=== PATIENT | female | born 1965 | race Caucasian/White ===

== ENCOUNTER 2019-12-05 19:26 | Emergency (ER) | payer MEDICARE ==
--- NOTE | 2019-12-05 20:50 | ERPHSYRPT ---
- History of Present Illness Time Seen by Provider: 12/05/19 19:45 Source: patient Exam Limitations: no limitations Patient Subjective Stated Complaint: pt to ER with complaints of lower back pain. pt states she always has back pain but lowered herself down to the ground today because she stated her back gave out. Triage Nursing Assessment: pt A&Ox4. pt ambulatory and anxious. pt skin pwd. Physician History: Patient is a 54-year-old female who presents with a complaint of back pain. She says she is in the midst of a work-up for rheumatoid arthritis by 2 different doctors. She was at a recently and bent over to burr picker some lucas and felt pain in her lower back. She has pain down both legs she has no bowel or bladder problems. Patient is currently under treatment for cellulitis of the abdominal wall Timing/Duration: yesterday Method of Injury: bending Quality: radiating, throbbing Back Pain Location: lumbar spine Back Pain Radiation: upper legs, lower legs Severity of Pain-Max: moderate Severity of Pain-Current: moderate Modifying Factors: Improves With: nothing Associated Symptoms: urinary incontinence, loss of bowel control, tingling in legs/feet, lower back pain Previous symptoms: same symptoms as today Allergies/Adverse Reactions: No Known Drug Allergies Allergy (Verified 12/05/19 19:47) Home Medications: Levothyroxine Sodium 100 Mcg [Synthroid 100 Mcg] 200 mg PO DAILY 11/25/12 [History] Metoprolol Tartrate 50 mg [Lopressor 50 MG] 50 mg PO DAILY 11/25/12 [Hist ory] Quetiapine Fumarate 100 mg [Seroquel 100 MG] 300 mg PO HS 11/25/12 [History] Simvastatin 20Mg [Zocor 20Mg] 20 mg PO DAILY 11/25/12 [History] Trazodone HCl 150 mg [Desyrel 150 MG] 100 mg PO HS 11/25/12 [History] Omeprazole 20 MG [Prilosec 20 mg] 20 mg PO DAILY 06/24/15 [History] Alprazolam 1 mg [Xanax 1 mg] 1 mg PO TID 07/02/18 [History] Sennosides/Docusate Sodium [Dok Plus Tablet] 1 each PO DAILY 07/02/18 [History] Benztropine Mesylate 1 mg PO DAILY 12/05/19 [History] Hx Tetanus, Diphtheria Vaccination/Date Given: Yes Hx Influenza Vaccination/Date Given: No Hx Pneumococcal Vaccination/Date Given: No Travel Risk - International Travel Have you traveled outside of the country in past 3 weeks: No - Coronavirus Screening Close contact with a COVID-19 positive Pt in past 14-21 Days: No - Review of Systems Constitutional: No Fever, No Chills Eyes: No Symptoms Ears, Nose, & Throat: No Symptoms Respiratory: No Cough, No Dyspnea Cardiac: No Chest Pain, No Edema, No Syncope Abdominal/Gastrointestinal: No Abdominal Pain, No Nausea, No Vomiting, No Diarrhea Genitourinary Symptoms: No Dysuria Musculoskeletal: Back Pain, No Neck Pain Skin: No Rash Neurological: No Dizziness, No Focal Weakness, No Sensory Changes Psychological: No Symptoms Endocrine: No Symptoms All Other Systems: Reviewed and Negative - Past Medical History Pertinent Past Medical History: Yes Neurological History: No Pertinent History ENT History: No Pertinent History Cardiac History: High Cholesterol, Hypertension Respiratory History: No Pertinent History Endocrine Medical History: Hypothyroidism Musculoskeletal History: Arthritis GI Medical History: GERD, Hepatitis History: Renal Disease Psycho-Social History: Bipolar, Depression Female Reproductive Disorders: No Pertinent History Other Medical History: CHRONIC ALCOHOLIC. SUBSTANCE ABUSE USER-METH. pt has hep c - Past Surgical History Past Surgical History: Yes Neuro Surgical History: No Pertinent History Cardiac: No Pertinent History Respiratory: No Pertinent History Gastrointestinal: No Pertinent History Genitourinary: Kidney Surgery Musculoskeletal: Orthopedic Surgery Female Surgical History: Hysterectomy, Tubal Ligation Other Surgical History: reimplantation of ureter - Social History Smoking Status: Current every day smoker How long have you smoked: 30 Exposure to second hand smoke: Yes Drug Use: methamphetamines Patient Lives Alone: Yes Significant Family History: no pertinent family hx - Female History Hx Now: No - Nursing Vital Signs Nursing Vital Signs: Initial Vital Signs Temperature 97.5 F 12/05/19 19:37 Pulse Rate 127 H 12/05/19 19:37 Respiratory Rate 18 12/05/19 19:37 Blood Pressure 154/100 12/05/19 19:37 O2 Sat by Pulse Oximetry 94 L 12/05/19 19:37 Pain Scale Pain Intensity 9 - Physical Exam General Appearance: no apparent distress, alert Eye Exam: PERRL/EOMI, eyes nml inspection Neck Exam: normal inspection, non-tender, supple, full range of motion, No meningismus, No midline tenderness Respiratory Exam: normal breath sounds, lungs clear, No respiratory distress Cardiovascular Exam: regular rate/rhythm, normal heart sounds Gastrointestinal Exam: soft, No tenderness, No mass Extremity Exam: normal inspection, normal range of motion, No calf tenderness, No pedal edema Neurologic Exam: alert, oriented x 3, cooperative, 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, normal mood/affect, nml station & gait, sensation nml, abnormal gait, other (Straight leg raising negative), No motor deficits Skin Exam: warm, dry, other (Of cellulitis right upper abdomen), No rash SpO2 Interpretation: normal SpO2: 94 O2 Delivery: Room Air - Course Nursing assessment & vital signs reviewed: Yes - Radiology Exams L-Spine X-ray Interpretation: Interpreted by me, Other (Mild degenerative changes and vascular calcifications) Ordered Tests: Active Orders 24 hr Category Date Time Status LUMBAR COMPLETE (MIN 4 VIEWS) Stat Exams 12/05/19 20:15 Taken - Departure Departure Disposition: Home Clinical Impression: Lumbar strain, Cellulitis Condition: Stable Critical Care Time: No Referrals: EMELY OROSCO MD [Primary Care Provider] - Instructions: Low Back Pain (DC) Prescriptions: Diclofenac Sodium 50 mg [Voltaren 50 mg] 50 mg PO TID 10 Days #30 tablet.ec
[2019-12-05 21:02] VITALS: BP 142/107; PULSE 104; O2SAT 96
--- NOTE | 2019-12-05 21:52 | XRAY ---
Indication: Lumbar pain after bending over. Comparison: July 05, 2006. 5 view lumbar spine again demonstrates normal alignment with vertebral body heights/disc spaces maintained. New mild bilateral L5-S1 degenerative facet hypertrophy. No acute fracture, subluxation, or pars interarticularis defect. Increasing moderate aortic calcifications. Impression: Nonacute lumbar spine with chronic features.
== END 2019-12-05 21:03 | disposition home or self-care (01) ==
LOC: ED 19:26
DX: S39.012A Strain of muscle, fascia and tendon of lower back, initial encounter (principal); X50.0XXA Overexertion from strenuous movement or load, initial encounter; X50.9XXA Other and unspecified overexertion or strenuous movements or postures, initial encounter; Y93.89 Activity, other specified; Y92.89 Other specified places as the place of occurrence of the external cause; L03.311 Cellulitis of abdominal wall; R20.0 Anesthesia of skin
CPT/HCPCS: 72110; 87070; 87077; 87186; 99283

== ENCOUNTER 2020-11-29 18:58 | Emergency (ER) | payer MEDICARE ==
[2020-11-29 19:07] VITALS: BP 131/106
[2020-11-29] MEDS ORDERED: Adacel Vial IM ONE (19:14)
[2020-11-29] MEDS ORDERED: XYLOCAINE 2% HCL 20 ML MDV ONE (19:14)
[2020-11-29] MEDS: XYLOCAINE 2% HCL 20 ML MDV IJ ONE (19:15)
[2020-11-29] MEDS: Adacel Vial IM ONE (19:16)
--- NOTE | 2020-11-29 19:25 | ERPHSYRPT ---
- History of Present Illness Time Seen by Provider: 11/29/20 19:10 Source: patient Exam Limitations: no limitations Patient Subjective Stated Complaint: LACERATION TO LEFT HAND Triage Nursing Assessment: 2CM LACERATION BETWEEN INDEX FINGER AND THUMB. NOT ACTIVELY BLEEDING. Physician History: Patient is a 54-year-old female presents to our ED for evaluation and treatment of a laceration to the webspace of her left upper extremity between the index finger and the thumb. Patient lacerated this area on a beach lanyard. Injury occurred just prior to arrival. No other injuries reported. Pain described as an ache that is localized. No radiation. No trauma. Patient denies foreign body sensation. Tetanus not up-to-date. Symptoms are mild to moderate in intensity. Pain somewhat worse with palpation and movement. Pain improved with rest. Patient voices no other complaints or concerns at this time. Timing/Duration: today Severity: mild Modifying Factors: Improves With: movement Associated Symptoms: denies symptoms Allergies/Adverse Reactions: No Known Drug Allergies Allergy (Verified 12/05/19 19:47) Home Medications: Levothyroxine Sodium 100 Mcg [Synthroid 100 Mcg] 200 mg PO DAILY 11/25/12 [History] Metoprolol Tartrate 50 mg [Lopressor 50 MG] 50 mg PO DAILY 11/25/12 [History] Quetiapine Fumarate 100 mg [Seroquel 100 MG] 300 mg PO HS 11/25/12 [History] Simvastatin 20Mg [Zocor 20Mg] 20 mg PO DAILY 11/25/12 [History] Trazodone HCl 150 mg [Desyrel 150 MG] 100 mg PO HS 11/25/12 [History] Omeprazole 20 MG [Prilosec 20 mg] 20 mg PO DAILY 06/24/15 [History] ALPRAZolam 1 MG [Xanax 1 mg] 1 mg PO TID 07/02/18 [History] Sennosides/Docusate Sodium [Dok Plus Tablet] 1 each PO DAILY 07/02/18 [History] Benztropine Mesylate 1 mg PO DAILY 12/05/19 [History] Hx Tetanus, Diphtheria Vaccination/Date Given: (UNKNOWN) Hx Influenza Vaccination/Date Given: No Hx Pneumococcal Vaccination/Date Given: No Travel Risk - International Travel Have you traveled outside of the country in past 3 weeks: No - Coronavirus Screening Are you exhibiting any of the following symptoms?: No Close contact with a COVID-19 positive Pt in past 14-21 Days: No - Vaccine Status Have you recieved a Covid-19 vaccination: Yes [employer]: [employer] - Review of Systems Constitutional: No Symptoms, No Fever, No Chills Eyes: No Symptoms Ears, Nose, & Throat: No Symptoms Respiratory: No Symptoms, No Cough, No Dyspnea Cardiac: No Symptoms, No Chest Pain, No Edema, No Syncope Abdominal/Gastrointestinal: No Symptoms, No Abdominal Pain, No Nausea, No Vomiting, No Diarrhea Genitourinary Symptoms: No Symptoms, No Dysuria Musculoskeletal: No Symptoms, No Back Pain, No Neck Pain Skin: No Symptoms, No Rash Neurological: No Symptoms, No Dizziness, No Focal Weakness, No Sensory Changes Psychological: No Symptoms Endocrine: No Symptoms Hematologic/Lymphatic: No Symptoms Immunological/Allergic: No Symptoms All Other Systems: Reviewed and Negative - Past Medical History Pertinent Past Medical History: Yes Neurological History: No Pertinent History ENT History: No Pertinent History Cardiac History: High Cholesterol, Hypertension Respiratory History: No Pertinent History Endocrine Medical History: Hypothyroidism Musculoskeletal History: Arthritis GI Medical History: GERD, Hepatitis History: Renal Disease Psycho-Social History: Bipolar, Depression Female Reproductive Disorders: No Pertinent History Other Medical History: CHRONIC ALCOHOLIC. SUBSTANCE ABUSE USER-METH. pt has hep c - Past Surgical History Past Surgical History: Yes Neuro Surgical History: No Pertinent History Cardiac: No Pertinent History Respiratory: No Pertinent History Gastrointestinal: No Pertinent History Genitourinary: Kidney Surgery Musculoskeletal: Orthopedic Surgery Female Surgical History: Hysterectomy, Tubal Ligation Other Surgical History: reimplantation of ureter - Social History Smoking Status: Current every day smoker How long have you smoked: 30 Exposure to second hand smoke: Yes Drug Use: methamphetamines Patient Lives Alone: Yes Significant Family History: no pertinent family hx - Nursing Vital Signs Nursing Vital Signs: Initial Vital Signs Temperature 97.6 F 11/29/20 18:59 Pulse Rate 112 H 11/29/20 18:59 Respiratory Rate 22 11/29/20 18:59 Blood Pressure 131/106 11/29/20 18:59 O2 Sat by Pulse Oximetry 100 11/29/20 18:59 Pain Scale Pain Intensity 4 - Physical Exam General Appearance: no apparent distress, alert Eye Exam: PERRL/EOMI, eyes nml inspection Ears, Nose, Throat Exam: normal ENT inspection, TMs normal, pharynx normal, moist mucous membranes Neck Exam: normal inspection, non-tender, supple, full range of motion Respiratory Exam: normal breath sounds, lungs clear, No respiratory distress Cardiovascular Exam: regular rate/rhythm, normal heart sounds, normal peripheral pulses Gastrointestinal/Abdomen Exam: soft, normal bowel sounds, No tenderness, No mass Back Exam: normal inspection, normal range of motion, No CVA tenderness, No vertebral tenderness Extremity Exam: normal inspection, normal range of motion, pelvis stable, other (Stellate shaped laceration of the webspace between the first and second digit left upper extremity. No active bleeding. Patient denies foreign body sensation. Extremity neurovascular intact distally. Compartments are soft. Cap refill less than 2 seconds.) Neurologic Exam: alert, oriented x 3, cooperative, normal mood/affect, nml cerebellar function, nml station & gait, sensation nml, No motor deficits Skin Exam: normal color, warm, dry, No rash Lymphatic Exam: No adenopathy SpO2 Interpretation: normal SpO2: 100 O2 Delivery: Room Air Procedures - Laceration/Wound Repair Left Hand Time of Procedure: 19:31 Wound Location: Left, hand Wound Length (cm): 0.5 Wound's Depth, Shape: superficial Wound Explored: clean Irrigated: Yes Hibiclens Prep: Yes Anesthesia: local, 2% Lidocaine Volume Anesthetic (ccs): 4 Wound Debrided: No debridement indicated. Wound Repaired With: sutures Suture Size/Type: 5-0, nylon Number of Sutures: 4 Layer Closure?: No Sterile Dressing Applied?: Yes Splint Applied?: No Sling Applied?: No Progress: Patient neurovascular intact distally post procedure. 11/29/20 19:32 Ordered Tests: Medication Summary Discontinued Medications Generic Name Dose Route Start Last Admin Trade Name Freq PRN Reason Stop Dose Admin Diphtheria/Tetanus/Acell Pertussis 0.5 ml 11/29/20 19:07 11/29/20 19:16 Adacel Vial IM 11/29/20 19:08 0.5 ml .ONCE ONE Administration Diphtheria/Tetanus/Acell Pertussis Confirm 11/29/20 19:14 Adacel Vial Administered 11/29/20 19:15 Dose 0.5 ml IM .STK-MED ONE Lidocaine HCl 5 ml 11/29/20 19:07 11/29/20 19:15 Xylocaine 2% Hcl 20 Ml Mdv IJ 11/29/20 19:08 5 ml STAT ONE Administration Lidocaine HCl Confirm 11/29/20 19:14 Xylocaine 2% Hcl 20 Ml Mdv Administered 11/29/20 19:15 Dose 5 ml .ROUTE .STK-MED ONE - Departure Departure Disposition: Home Clinical Impression: Laceration Condition: Stable Critical Care Time: No Referrals: EMELY OROSCO MD [Primary Care Provider] - Instructions: Wound Care (DC), Laceration Repair With Stitches (DC) Additional Instructions: Discharge/Care Plan ZACARIAS ADAMS was seen on 11/29/20 in the Emergency Room. The patient was counseled regarding Diagnosis,Lab results, Imaging studies, need for follow up and when to return to the Emergency Room. Prescriptions given: Discharge Note I have spoken with the patient and/or caregivers. I have explained the patient's condition, diagnosis and treatment plan based on the information available to me at this time. I have answered the patient's and/or caregiver's questions and addressed any concerns. The patient and/or caregivers have as good understanding of the patient's diagnosis, condition and treatment plan as can be expected at this point. The vital signs have been stable. The patient's condition is stable and appropriate for discharge from the emergency department. The patient will pursue further outpatient evaluation with the primary care physician or other designated or consulting physician as outlined in the discharge instructions. The patient and/or caregivers are agreeable to this plan of care and follow-up instructions have been explained in detail. The patient and/or caregivers have received these instruction. The patient/and or caregivers are aware that any significant change in condition or worsening of symptoms should prompt an immediate return to this or the closest emergency department or call 911.
[2020-11-29] MEDS ORDERED: BACIGUENT PACKET ONE (19:32)
[2020-11-29] MEDS: BACIGUENT PACKET TP ONE (19:33)
[2020-11-29 19:36] VITALS: PULSE 100; O2SAT 96
== END 2020-11-29 19:39 | disposition home or self-care (01) ==
LOC: ED 18:58
DX: S61.412A Laceration without foreign body of left hand, initial encounter (principal); W26.8XXA Contact with other sharp object(s), not elsewhere classified, initial encounter; Z79.899 Other long term (current) drug therapy
CPT/HCPCS: 12001; 90471; 90715; 96372; 99283; A9270-GY

== ENCOUNTER 2021-06-02 02:11 | Emergency (ER) | payer MEDICARE ==
[2021-06-02 02:58] LABS: Absolute Neutrophil Ct (ANC) 5.48 (1.4-6.9); Basophil (Absolute #) 0.08 (0-0.4); Eosinophil % 3.6 % (0.00-5.0); Eosinophil (Absolute #) 0.27 (0-0.5); Hematocrit 35.4 % (35-47); Hemoglobin 11.3 gm/dl (12.0-16.0); Lymphocyte (Absolute #) 1.16 (1.0-4.6); Lymphocytes % 15.4 % (24.0-44.0); Mean Cell Volume 89.8 fl (78-100); Mean Corpuscular Hemoglobin 28.7 pg (26-32); Mean Corpuscular Hgb Concent. 31.9 g/dl (32-36); Mean Platelet Volume 11.3 fl (7.5-11.0); Monocyte (Absolute #) 0.54 (0.0-1.3); Monocytes % 7.2 % (0.0-12.0); Neutrophil % 72.7 % (36.0-66.0); Platelet Count 245 K/mm3 (150-450); Red Blood Count 3.94 M/mm3 (4.1-5.4); White Blood Count 7.5 K/mm3 (4.0-10.5)
[2021-06-02 03:04] LABS: Appearance SLIGHTLY CLOUDY (CLEAR); Bacteria FEW /HPF (NEGATIVE); Bilirubin NEGATIVE (NEGATIVE); Blood NEGATIVE Ery/ul (0-5); Glucose NEGATIVE (NEGATIVE); Ketones NEGATIVE (NEGATIVE); Leukocyte Esterase SMALL (NEGATIVE); Mucus SLIGHT /HPF (NEGATIVE); Nitrite POSITIVE (NEGATIVE); Protein,Urine Dip NEGATIVE (Negative); RBC 0-2 /HPF (0-2); Specific Gravity 1.021 (1.005-1.025); Urobilinogen NEGATIVE mg/dL (0-1); WBC 26-50 /HPF (0-5)
[2021-06-02 03:16] LABS: Barbiturate,Urine NEGATIVE (NEGATIVE); Benzodiazepine,Urine NEGATIVE (NEGATIVE); Cocaine,Urine NEGATIVE (NEGATIVE); Methadone,Urine NEGATIVE (NEGATIVE); Opiate,Urine NEGATIVE (NEGATIVE); PCP,Urine NEGATIVE (NEGATIVE); THC,Urine NEGATIVE (NEGATIVE)
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
[2021-06-02 03:35] LABS: ACETAMINOPHEN < 10 ug/ml (10-30); ALBUMIN 4.5 g/dL (3.5-5.0); ALKALINE PHOSPHATASE 94 U/L (38-126); ANION GAP 12.6 MEQ/L (5-15); BLOOD UREA NITROGEN 27 mg/dL (7-17); CHLORIDE 106 mmol/L (98-107); Calcium 9.2 mg/dL (8.4-10.2); Carbon Dioxide 22 mmol/L (22-30); ETHYL ALCOHOL < 10 mg/dL (0-10); Glucose 92 mg/dL (74-106); Potassium 3.5 mmol/L (3.5-5.1); SALICYLATE < 1.0 mg/dL (2-20); SGOT/AST 82 U/L (14-36); SGPT/ALT 36 U/L (0-35); SODIUM 137 mmol/L (137-145); Total Protein 7.2 g/dL (6.3-8.2)
[2021-06-02] MEDS ORDERED: Macrobid 100MG Capsule PO ONE (03:38)
[2021-06-02] MEDS ORDERED: Macrobid 100MG Capsule ONE (03:40)
[2021-06-02 03:48] LABS: Amphetamine,Urine POSITIVE (NEGATIVE)
--- NOTE | 2021-06-02 08:13 | XRAY ---
Indication: Low back pain. Fracture. Multiple contiguous axial images obtained through the lumbar spine. Sagittal and coronal reformatted images obtained. Comparison: Lumbar radiograph December 05, 2019. Axial images negative for acute fracture, suspicious bony lesions, or spinal canal stenosis. Minimal broad-based disc bulge at L3-S1 levels. Mild/moderate bilateral L4-S1 degenerative facet hypertrophy. Sagittal and coronal reformatted images demonstrate normal alignment with vertebral body heights/disc spaces maintained. No acute compression fracture or subluxation. Visualized noncontrasted soft tissues demonstrates mild scattered aortoiliac calcifications. Incidental right renal atrophy. Impression: 1. L5-S1 degenerative changes. Outpatient MRI may yield further information if clinically warranted. 2. Negative acute fracture. 3. Incidental scattered arteriosclerotic disease and right renal atrophy. Comment: Preliminary interpretation made by [facility]. No critical discrepancy.
[2021-06-02 10:57] VITALS: BP 148/94; PULSE 98; O2SAT 98
== END 2021-06-02 11:38 | disposition home or self-care (01) ==
LOC: ED 02:11
DX: F15.90 Other stimulant use, unspecified, uncomplicated (principal); N39.0 Urinary tract infection, site not specified; R44.1 Visual hallucinations; R94.4 Abnormal results of kidney function studies; I70.90 Unspecified atherosclerosis; M47.816 Spondylosis without myelopathy or radiculopathy, lumbar region; M48.061 Spinal stenosis, lumbar region without neurogenic claudication; E78.5 Hyperlipidemia, unspecified; I10 Essential (primary) hypertension; F10.20 Alcohol dependence, uncomplicated; B19.20 Unspecified viral hepatitis C without hepatic coma; Z72.0 Tobacco use; Z79.899 Other long term (current) drug therapy
CPT/HCPCS: 36000; 36415; 72131; 80053; 80307; 81001; 84484; 84703; 85025; 87077; 87086; 87186; 93041; 99284; G0480; A9270-GY

== ENCOUNTER 2021-10-11 17:32 | Emergency (ER) | payer MEDICARE ==
[2021-10-11 17:42] VITALS: BP 192/110; PULSE 92; O2SAT 96
[2021-10-11] MEDS ORDERED: TORAdol 30 mg Injection IM ONE (17:51)
[2021-10-11] MEDS ORDERED: TORAdol 30 mg Injection ONE (17:52)
--- NOTE | 2021-10-11 18:27 | ERPHSYRPT ---
- History of Present Illness Time Seen by Provider: 10/11/21 17:50 Source: patient Exam Limitations: no limitations Patient Subjective Stated Complaint: Pt states "Sometime in the night I must have done something to my right shoulder. I can move it in some directions but n ot other." Triage Nursing Assessment: Pt presented alert and oriented X 3, skin wpd PT ambulates with an upright steady gait, able to speak in clear fulll sentenes pt in no apparent respiratory distress. tp holding her right arm. Physician History: Patient is a 55-year-old female presents to emergency department for evaluation of right shoulder pain. Patient states pain started at night. Patient awoke and her shoulder was sore. Patient observed that pain occurred mostly when she moves her shoulders in certain directions. Later today patient went to lift a gallon of milk and says that her pain became severe. Pain described as an ache that is well localized. No radiation. Pain reproduced with certain motions of the shoulder. Pain improved with rest. No neck pain. No chest pain or shortness of breath. No nausea vomiting or diaphoresis. Patient voices no other complaints concerns at this time. Occurred: just prior to arrival Quality: constant Severity of Pain-Max: moderate Severity of Pain-Current: mild Extremities Pain Location: shoulder: right (Patient is right-hand dominant) Modifying Factors: Improves With: movement Associated Symptoms: none, No chest discomfort, No dyspnea, No nausea, No short of breath, No vomiting Allergies/Adverse Reactions: No Known Drug Allergies Allergy (Verified 06/02/21 02:56) Home Medications: Levothyroxine Sodium 100 Mcg [Synthroid 100 Mcg] 200 mg PO DAILY 11/25/12 [History] Metoprolol Tartrate 50 mg [Lopressor 50 MG] 50 mg PO DAILY 11/25/12 [History] Quetiapine Fumarate 100 mg [Seroquel 100 MG] 300 mg PO HS 11/25/12 [History] Simvastatin 20Mg [Zocor 20Mg] 20 mg PO DAILY 11/25/12 [History] Trazodone HCl 150 mg [Desyrel 150 MG] 100 mg PO HS 11/25/12 [History] Omeprazole 20 MG [Prilosec 20 mg] 20 mg PO DAILY 06/24/15 [History] ALPRAZolam 1 MG [Xanax 1 mg] 1 mg PO TID 07/02/18 [History] Sennosides/Docusate Sodium [Dok Plus Tablet] 1 each PO DAILY 07/02/18 [History] Benztropine Mesylate 1 mg PO DAILY 12/05/19 [History] Hx Tetanus, Diphtheria Vaccination/Date Given: No (UNKNOWN) Hx Influenza Vaccination/Date Given: No Hx Pneumococcal Vaccination/Date Given: No Immunizations Up to Date: Yes Travel Risk - International Travel Have you traveled outside of the country in past 3 weeks: No - Coronavirus Screening Are you exhibiting any of the following symptoms?: No Close contact with a COVID-19 positive Pt in past 14-21 Days: No - Vaccine Status Have you recieved a Covid-19 vaccination: Yes 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: [employer] - Review of Systems Constitutional: No Symptoms, No Fever, No Chills Eyes: No Symptoms Ears, Nose, & Throat: No Symptoms Respiratory: No Symptoms, No Cough, No Dyspnea Cardiac: No Symptoms, No Chest Pain, No Edema, No Syncope Abdominal/Gastrointestinal: No Symptoms, No Abdominal Pain, No Nausea, No Vomiting, No Diarrhea Genitourinary Symptoms: No Symptoms, No Dysuria Musculoskeletal: No Symptoms, No Back Pain, No Neck Pain Skin: No Symptoms, No Rash Neurological: No Symptoms, No Dizziness, No Focal Weakness, No Sensory Changes Psychological: No Symptoms Endocrine: No Symptoms Hematologic/Lymphatic: No Symptoms Immunological/Allergic: No Symptoms All Other Systems: Reviewed and Negative - Past Medical History Pertinent Past Medical History: Yes Neurological History: No Pertinent History ENT History: No Pertinent History Cardiac History: High Cholesterol, Hypertension Respiratory History: No Pertinent History Endocrine Medical History: Hypothyroidism Musculoskeletal History: Arthritis GI Medical History: GERD, Hepatitis History: Renal Disease Psycho-Social History: Bipolar, Depression Female Reproductive Disorders: No Pertinent History Other Medical History: CHRONIC ALCOHOLIC. SUBSTANCE ABUSE USER-METH. pt has hep c. pt very poor historian at this time. most of history obtained from previous documentation - Past Surgical History Past Surgical History: Yes Neuro Surgical History: No Pertinent History Cardiac: No Pertinent History Respiratory: No Pertinent History Gastrointestinal: No Pertinent History Genitourinary: Kidney Surgery Musculoskeletal: Orthopedic Surgery Female Surgical History: Hysterectomy, Tubal Ligation Other Surgical History: reimplantation of ureter - Social History Smoking Status: Current every day smoker How long have you smoked: 30 Exposure to second hand smoke: No Drug Use: methamphetamines Patient Lives Alone: Yes Significant Family History: no pertinent family hx - Nursing Vital Signs Nursing Vital Signs: Initial Vital Signs Temperature 97.6 F 10/11/21 17:38 Pulse Rate 92 H 10/11/21 17:38 Respiratory Rate 20 10/11/21 17:38 Blood Pressure 192/110 10/11/21 17:38 O2 Sat by Pulse Oximetry 96 10/11/21 17:38 Pain Scale Pain Intensity 8 - Physical Exam General Appearance: no apparent distress, alert Eyes, Ears, Nose, Throat Exam: normal ENT inspection, TMs normal, pharynx normal, moist mucous membranes Neck Exam: normal inspection, non-tender, supple, full range of motion Cardiovascular/Respiratory Exam: chest non-tender, normal breath sounds, regular rate/rhythm, no respiratory distress Abdominal Exam: non-tender, soft, no organomegaly, no hernia, No guarding Back Exam: normal inspection, normal range of motion, CVA tenderness, No vertebral tenderness Shoulder Exam: normal inspection, limited ROM (Right shoulder limited range due to pain. Right upper extremity neurovascular intact distally. Compartments are soft. Cap refill less than 2 seconds. Pain reproduced with movement) Elbow/Forearm Exam: normal inspection, non-tender, no evidence of injury, normal ROM Wrist Exam: normal inspection, non-tender, no evidence of injury, normal ROM Hand Exam: normal inspection, non-tender, no evidence of injury, normal ROM Neuro/Tendon Exam: normal sensation, normal motor functions Mental Status Exam: alert, oriented x 3, cooperative Skin Exam: normal color, warm, dry SpO2 Interpretation: normal SpO2: 96 O2 Delivery: Room Air - Course Nursing assessment & vital signs reviewed: Yes - Radiology Exams Shoulder X-ray Interpretation: Interpreted by me (No fracture dislocations. No soft tissue abnormalities. Osteopenia observed lung field is clear.) Ordered Tests: Active Orders 24 hr Category Date Time Status SHOULDER Stat Exams 10/11/21 18:16 Taken Medication Summary Discontinued Medications Generic Name Dose Route Start Last Admin Trade Name Freq PRN Reason Stop Dose Admin Ketorolac Tromethamine 30 mg 10/11/21 17:51 10/11/21 17:53 Ketorolac Tromethamine 30 Mg/Ml Inj IM 10/11/21 17:52 30 mg STAT ONE Administration Ketorolac Tromethamine Confirm 10/11/21 17:52 Ketorolac Tromethamine 30 Mg/Ml Inj Administered 10/11/21 17:53 Dose 30 mg .ROUTE .STK-MED ONE - Progress Progress: improved Progress Note: Patient reassessed. Pain improved after Toradol administration. X-ray negative for fracture dislocation. Osteopenia observed. A sling was placed for comfort. Patient that she is ready for discharge. Patient agrees to follow-up with primary care doctor within 48 hours for evaluation. Portions of this note were created with voice recognition technology. There may be grammatical, spelling, punctuation or sound alike errors 10/11/21 18:27 Counseled pt/family regarding: diagnosis, need for follow-up, rad results - Departure Departure Disposition: Home Clinical Impression: Shoulder strain Condition: Stable Critical Care Time: No Referrals: BILLY COMER MD [Primary Care Provider] - Follow up/PCP as directed Instructions: Shoulder Sprain Additional Instructions: Discharge/Care Plan ZACARIAS ADAMS was seen on 10/11/21 in the Emergency Room. The patient was counseled regarding Diagnosis,Lab results, Imaging studies, need for follow up and when to return to the Emergency Room. Prescriptions given: Discharge Note I have spoken with the patient and/or caregivers. I have explained the patient's condition, diagnosis and treatment plan based on the information available to me at this time. I have answered the patient's and/or caregiver's questions and addressed any concerns. The patient and/or caregivers have as good understanding of the patient's diagnosis, condition and treatment plan as can be expected at this point. The vital signs have been stable. The patient's condition is stable and appropriate for discharge from the emergency department. The patient will pursue further outpatient evaluation with the primary care physician or other designated or consulting physician as outlined in the discharge instructions. The patient and/or caregivers are agreeable to this plan of care and follow-up instructions have been explained in detail. The patient and/or caregivers have received these instruction. The patient/and or caregivers are aware that any significant change in condition or worsening of symptoms should prompt an immediate return to this or the closest emergency department or call 911. Forms: Ortho Referral
--- NOTE | 2021-10-12 09:00 | XRAY ---
Indication: Pain 2 days. No known injury. Comparison: None 3 view right shoulder demonstrates mild/moderate AC degenerative arthropathy and tiny right hilar calcified granulomas. No other bony, articular, or soft tissue abnormalities.
== END 2021-10-11 18:33 | disposition home or self-care (01) ==
LOC: ED 17:32
DX: S46.911A Strain of unspecified muscle, fascia and tendon at shoulder and upper arm level, right arm, initial encounter (principal); X50.0XXA Overexertion from strenuous movement or load, initial encounter; M25.511 Pain in right shoulder; E78.5 Hyperlipidemia, unspecified; I10 Essential (primary) hypertension; Z72.0 Tobacco use; Z79.899 Other long term (current) drug therapy
CPT/HCPCS: 73030; 96372; 99284; J1885

== ENCOUNTER 2022-02-05 14:48 | Observation (INO) | payer MEDICARE ==
--- NOTE | 2022-02-05 15:06 | ERPHSYRPT ---
- History of Present Illness Time Seen by Provider: 02/05/22 14:59 Source: patient, EMS Exam Limitations: no limitations Physician History: Pt brought in by EMS due to fall witnessed by bystanders, complaining of headache , stated by pt that she got tripped up with her dog and fell. Has reported hx of alleged use of meth in past by EMS at scene none known today. Pt also complaining of pain up and down entire spine but nontender chest and abd and no SOBreath or CP. had dizziness a few days ago and nne today and none as a prodrome today. Occurred: just prior to arrival Reason for Fall: fell from standing pos Injuries/Pain Location: head, neck Loss of Consciousness: no loss of consciousness Quality: sharpness Severity of Pain-Max: moderate Severity of Pain-Current: moderate Modifying Factors: Improves With: nothing Associated Symptoms (Fall): back pain, neck pain Allergies/Adverse Reactions: No Known Drug Allergies Allergy (Verified 06/02/21 02:56) Home Medications: Levothyroxine Sodium 100 Mcg [Synthroid 100 Mcg] 200 mg PO DAILY 11/25/12 [History] Metoprolol Tartrate 50 mg [Lopressor 50 MG] 50 mg PO DAILY 11/25/12 [History] Quetiapine Fumarate 100 mg [Seroquel 100 MG] 300 mg PO HS 11/25/12 [History] Simvastatin 20Mg [Zocor 20Mg] 20 mg PO DAILY 11/25/12 [History] Trazodone HCl 150 mg [Desyrel 150 MG] 100 mg PO HS 11/25/12 [History] Omeprazole 20 MG [Prilosec 20 mg] 20 mg PO DAILY 06/24/15 [History] ALPRAZolam 1 MG [Xanax 1 mg] 1 mg PO TID 07/02/18 [History] Sennosides/Docusate Sodium [Dok Plus Tablet] 1 each PO DAILY 07/02/18 [History] Benztropine Mesylate 1 mg PO DAILY 12/05/19 [History] Hx Tetanus, Diphtheria Vaccination/Date Given: No (UNKNOWN) Hx Influenza Vaccination/Date Given: No Hx Pneumococcal Vaccination/Date Given: No Travel Risk - Vaccine Status Have you recieved a Covid-19 vaccination: Yes 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: [employer] - Review of Systems Constitutional: No Fever, No Chills Eyes: No Symptoms Ears, Nose, & Throat: No Symptoms Respiratory: No Cough, No Dyspnea Cardiac: No Chest Pain, No Edema, No Syncope Abdominal/Gastrointestinal: No Abdominal Pain, No Nausea, No Vomiting, No Diarrhea Genitourinary Symptoms: No Dysuria Musculoskeletal: No Back Pain, No Neck Pain Skin: No Rash Neurological: No Dizziness, No Focal Weakness, No Sensory Changes Psychological: No Symptoms Endocrine: No Symptoms All Other Systems: Reviewed and Negative - Past Medical History Pertinent Past Medical History: Yes Neurological History: No Pertinent History ENT History: No Pertinent History Cardiac History: High Cholesterol, Hypertension Respiratory History: No Pertinent History Endocrine Medical History: Hypothyroidism Musculoskeletal History: Arthritis GI Medical History: GERD, Hepatitis History: Renal Disease Psycho-Social History: Bipolar, Depression Female Reproductive Disorders: No Pertinent History Other Medical History: CHRONIC ALCOHOLIC. SUBSTANCE ABUSE USER-METH. pt has hep c. pt very poor historian at this time. most of history obtained from previous documentation - Past Surgical History Past Surgical History: Yes Neuro Surgical History: No Pertinent History Cardiac: No Pertinent History Respiratory: No Pertinent History Gastrointestinal: No Pertinent History Genitourinary: Kidney Surgery Musculoskeletal: Orthopedic Surgery Female Surgical History: Hysterectomy, Tubal Ligation Other Surgical History: reimplantation of ureter - Social History Smoking Status: Current every day smoker How long have you smoked: 30 Exposure to second hand smoke: No Drug Use: methamphetamines Patient Lives Alone: Yes Significant Family History: no pertinent family hx - Nursing Vital Signs Nursing Vital Signs: Initial Vital Signs Temperature 97.8 F 02/05/22 14:58 Pulse Rate 102 H 02/05/22 14:58 Respiratory Rate 20 02/05/22 14:58 Blood Pressure 144/102 02/05/22 14:58 O2 Sat by Pulse Oximetry 96 02/05/22 14:58 Pain Scale Pain Intensity 10 - [place] Coma Score Best Eye Response ([place]): (4) open spontaneously Best Verbal Response (Zev): (5) oriented Best Motor Response ([place]): (6) obeys commands Zev Total: 15 - Physical Exam General Appearance: no apparent distress, alert Head Injury: no evidence of injury Eye Exam: PERRL/EOMI ENT Exam: airway nml Neck Exam: trachea midline, normal inspection, pain on movement of neck, stiff neck, tenderness, mid-line tenderness Respiratory/Chest Exam: normal breath sounds, No chest tenderness, No respiratory distress Cardiovascular Exam: normal heart sounds, regular rate/rhythm Gastrointestinal Exam: soft, No tenderness, No distention, No guarding, No ecc hymosis Rectal Exam: deferred Back Exam: normal inspection, vertebral tenderness Extremity Exam: normal inspection, normal range of motion, pelvis stable, No deformities Peripheral Pulses: carotid (R): 2+, carotid (L): 2+, femoral (R): 2+, femoral (L): 2+, dorsalis-pedis (R): 2+, dorsalis-pedis (L): 2+ Neurologic Exam: alert, oriented x 3, cooperative, [employer]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 nml as tested, nml cerebellar function, sensation nml, No motor deficits Skin Exam: normal color, warm, dry SpO2 Interpretation: normal SpO2: 97 O2 Delivery: Room Air - Course Nursing assessment & vital signs reviewed: Yes Ordered Tests: Active Orders 24 hr Category Date Time Status Clean Catch Urine Specimen STAT Care 02/05/22 15:13 Active EKG-ER Only STAT Care 02/05/22 15:13 Active IV Insertion STAT Care 02/05/22 15:13 Active CERVICAL SPINE WO CONTRAST [CT] Stat Exams 02/05/22 15:12 Completed HEAD WITHOUT CONTRAST [CT] Stat Exams 02/05/22 15:11 Completed LUMBAR SPINE W/O [CT] Stat Exams 02/05/22 15:12 Completed THORACIC SPINE W/O CONTRAST [CT] Stat Exams 02/05/22 15:12 Completed ACETAMINOPHEN Stat Lab 02/05/22 16:30 Completed CBC W DIFF Stat Lab 02/05/22 16:30 Completed CMP Stat Lab 02/05/22 16:30 Completed CULTURE,URINE Stat Lab 02/05/22 16:48 Received ETHYL ALCOHOL Stat Lab 02/05/22 16:30 Completed HCG QUALITATIVE,SERUM Stat Lab 02/05/22 16:30 Completed Lactic Acid Stat Lab 02/05/22 17:05 Completed SALICYLATE Stat Lab 02/05/22 16:30 Completed T4 (Thyroxine) Stat Lab 02/05/22 16:30 Completed TROPONIN Q4H Lab 02/05/22 16:30 Completed TROPONIN Q4H Lab 02/05/22 18:58 Completed TROPONIN Q4H Lab 02/05/22 23:15 Ordered TSH [TSH, 3RD Generation] Stat Lab 02/05/22 16:30 Completed UA W/RFX CULTURE Stat Lab 02/05/22 16:48 Completed Urine Triage Profile Stat Lab 02/05/22 16:48 Completed Medication Summary Discontinued Medications Generic Name Dose Route Start Last Admin Trade Name Carol PRN Reason Stop Dose Admin Sodium Chloride 1,000 mls @ 999 mls/hr 02/05/22 15:13 02/05/22 17:42 Sodium Chloride 0.9% 1000 Ml IV 02/05/22 16:13 Infused .Q1H1M STA Infusion Sodium Chloride Confirm 02/05/22 15:58 Sodium Chloride 0.9% 1000 Ml Administered 02/05/22 15:59 Dose 1,000 mls @ ud .ROUTE .STK-MED ONE Ceftriaxone Sodium/Dextrose 1 g in 50 mls @ 100 mls/hr 02/05/22 19:46 02/05/22 20:30 Rocephin 1 Gm-D5w 50 Ml Bag IV 02/05/22 20:15 Infused STAT STA Infusion Ceftriaxone Sodium/Dextrose Confirm 02/05/22 19:51 Rocephin 1 Gm-D5w 50 Ml Bag Administered 02/05/22 19:52 Dose 1 g in 50 mls @ ud IV .STK-MED ONE Lorazepam 1 mg 02/05/22 15:16 02/05/22 16:36 Lorazepam 2 Mg/1 Ml 2 Mg Vial IV 02/05/22 15:17 1 mg STAT ONE Administration Lorazepam Confirm 02/05/22 15:58 Lorazepam 2 Mg/1 Ml 2 Mg Vial Administered 02/05/22 15:59 Dose 2 mg .ROUTE .STK-MED ONE Lab/Rad Data: Laboratory Result Diagrams 02/05/22 16:30 02/05/22 16:30 Laboratory Results 02/05/22 02/05/22 02/05/22 Range/Units 18:58 17:05 16:48 WBC (4.0-10.5) x10^3/uL RBC (4.1-5.4) x10^6/uL Hgb (12.0-16.0) g/dL Hct (35-47) % MCV (78-100) fL MCH (26-32) pg MCHC (32-36) g/dL RDW (11.5-14.0) % Plt Count (150-450) x10^3/uL MPV (7.5-11.0) fL Gran % (36.0-66.0) % Immature Gran % (Auto) (0.00-0.4) % Nucleat RBC Rel Count (0.00-0.1) % Eos # (Auto) (0-0.5) x10^3/uL Immature Gran # (Auto) (0.00-0.03) x10^3u/L Absolute Lymphs (auto) (1.0-4.6) x10^3/uL Absolute Monos (auto) (0.0-1.3) x10^3/uL Absolute Nucleated RBC (0.00-0.01) x10^3u/L Lymphocytes % (24.0-44.0) % Monocytes % (0.0-12.0) % Eosinophils % (0.00-5.0) % Basophils % (0.0-0.4) % Absolute Granulocytes (1.4-6.9) x10^3/uL Basophils # (0-0.4) x10^3/uL Sodium (137-145) mmol/L Potassium (3.5-5.1) mmol/L Chloride (98-107) mmol/L Carbon Dioxide (22-30) mmol/L Anion Gap (5-15) MEQ/L BUN (7-17) mg/dL Creatinine (0.52-1.04) mg/dL Estimated GFR ML/MIN Glucose (74-106) mg/dL Lactic Acid 1.0 (0.4-2.0) Calcium (8.4-10.2) mg/dL Total Bilirubin (0.2-1.3) mg/dL AST (14-36) U/L ALT (0-35) U/L Alkaline Phosphatase (38-126) U/L Troponin I < 0.012 (0.000-0.034) ng/mL Serum Total Protein (6.3-8.2) g/dL Albumin (3.5-5.0) g/dL Thyroxine (T4) (5.53-10.96) ug/dL TSH 3rd Generation (0.47-4.68) mIU/L Serum , Qual (Negative) Urinalys Dipstick Clnc MAIN LAB Urine Color YELLOW (YELLOW) Urine Appearance SLIGHTLY CLOUDY (CLEAR) Urine pH 5.5 (5-6) Ur Specific Roach 1.020 (1.005-1.025) POC Urine Protein Conf NEGATIVE (Negative) Urine Ketones NEGATIVE (NEGATIVE) Urine Nitrite POSITIVE (NEGATIVE) Urine Bilirubin NEGATIVE (NEGATIVE) Urine Urobilinogen 0.2 (0-1) mg/dL Urine Leukocytes MODERATE (NEGATIVE) Urine WBC (Auto) >100 (0-5) /HPF Urine RBC (Auto) 11-15 (0-2) /HPF U Hyaline Cast (Auto) 0-2 (0-2) /LPF U Epithel Cells (Auto) RARE (FEW) /HPF Urine Bacteria (Auto) MODERATE (NEGATIVE) /HPF Urine RBC TRACE-INTACT (0-5) Buster/ul Unidentified Crystals 2-5 (NEGATIVE) /HPF Urine Mucus (Auto) SLIGHT (NEGATIVE) /HPF Ur Culture Indicated? YES Urine Glucose NEGATIVE (NEGATIVE) mg/dL Salicylates (2-20) mg/dL Urine Opiates Level (NEGATIVE) Ur Methadone (NEGATIVE) Acetaminophen (10-30) ug/ml Urine Barbiturates (NEGATIVE) Ur Phencyclidine (PCP) (NEGATIVE) Urine Amphetamine (NEGATIVE) U Benzodiazepine Level (NEGATIVE) Urine Cocaine (NEGATIVE) Urine Marijuana (THC) (NEGATIVE) Ethyl Alcohol (0-10) mg/dL 02/05/22 02/05/22 02/05/22 Range/Units 16:48 16:30 16:30 WBC (4.0-10.5) x10^3/uL RBC (4.1-5.4) x10^6/uL Hgb (12.0-16.0) g/dL Hct (35-47) % MCV (78-100) fL MCH (26-32) pg MCHC (32-36) g/dL RDW (11.5-14.0) % Plt Count (150-450) x10^3/uL MPV (7.5-11.0) fL Gran % (36.0-66.0) % Immature Gran % (Auto) (0.00-0.4) % Nucleat RBC Rel Count (0.00-0.1) % Eos # (Auto) (0-0.5) x10^3/uL Immature Gran # (Auto) (0.00-0.03) x10^3u/L Absolute Lymphs (auto) (1.0-4.6) x10^3/uL Absolute Monos (auto) (0.0-1.3) x10^3/uL Absolute Nucleated RBC (0.00-0.01) x10^3u/L Lymphocytes % (24.0-44.0) % Monocytes % (0.0-12.0) % Eosinophils % (0.00-5.0) % Basophils % (0.0-0.4) % Absolute Granulocytes (1.4-6.9) x10^3/uL Basophils # (0-0.4) x10^3/uL Sodium 139 (137-145) mmol/L Potassium 3.9 (3.5-5.1) mmol/L Chloride 107 (98-107) mmol/L Carbon Dioxide 23 (22-30) mmol/L Anion Gap 13.0 (5-15) MEQ/L BUN 40 H (7-17) mg/dL Creatinine 1.75 H (0.52-1.04) mg/dL Estimated GFR 31.7 ML/MIN Glucose 97 (74-106) mg/dL Lactic Acid (0.4-2.0) Calcium 9.3 (8.4-10.2) mg/dL Total Bilirubin 0.60 (0.2-1.3) mg/dL AST 44 H (14-36) U/L ALT 26 (0-35) U/L Alkaline Phosphatase 75 (38-126) U/L Troponin I (0.000-0.034) ng/mL Serum Total Protein 7.3 (6.3-8.2) g/dL Albumin 4.2 (3.5-5.0) g/dL Thyroxine (T4) 7.06 (5.53-10.96) ug/dL TSH 3rd Generation 1.170 (0.47-4.68) mIU/L Serum , Qual (Negative) Urinalys Dipstick Clnc Urine Color (YELLOW) Urine Appearance (CLEAR) Urine pH (5-6) Ur Specific Roach (1.005-1.025) POC Urine Protein Conf (Negative) Urine Ketones (NEGATIVE) Urine Nitrite (NEGATIVE) Urine Bilirubin (NEGATIVE) Urine Urobilinogen (0-1) mg/dL Urine Leukocytes (NEGATIVE) Urine WBC (Auto) (0-5) /HPF Urine RBC (Auto) (0-2) /HPF U Hyaline Cast (Auto) (0-2) /LPF U Epithel Cells (Auto) (FEW) /HPF Urine Bacteria (Auto) (NEGATIVE) /HPF Urine RBC (0-5) Buster/ul Unidentified Crystals (NEGATIVE) /HPF Urine Mucus (Auto) (NEGATIVE) /HPF Ur Culture Indicated? Urine Glucose (NEGATIVE) mg/dL Salicylates < 1.0 L (2-20) mg/dL Urine Opiates Level POSITIVE (NEGATIVE) Ur Methadone NEGATIVE (NEGATIVE) Acetaminophen < 10 L (10-30) ug/ml Urine Barbiturates NEGATIVE (NEGATIVE) Ur Phencyclidine (PCP) NEGATIVE (NEGATIVE) Urine Amphetamine POSITIVE (NEGATIVE) U Benzodiazepine Level NEGATIVE (NEGATIVE) Urine Cocaine NEGATIVE (NEGATIVE) Urine Marijuana (THC) NEGATIVE (NEGATIVE) Ethyl Alcohol < 10 (0-10) mg/dL 02/05/22 02/05/22 02/05/22 Range/Units 16:30 16:30 16:30 WBC 8.7 (4.0-10.5) x10^3/uL RBC 3.71 L (4.1-5.4) x10^6/uL Hgb 11.0 L (12.0-16.0) g/dL Hct 35.3 (35-47) % MCV 95.1 (78-100) fL MCH 29.6 (26-32) pg MCHC 31.2 L (32-36) g/dL RDW 13.8 (11.5-14.0) % Plt Count 249 (150-450) x10^3/uL MPV 11.5 H (7.5-11.0) fL Gran % 77.3 H (36.0-66.0) % Immature Gran % (Auto) 0.3 (0.00-0.4) % Nucleat RBC Rel Count 0.0 (0.00-0.1) % Eos # (Auto) 0.21 (0-0.5) x10^3/uL Immature Gran # (Auto) 0.03 (0.00-0.03) x10^3u/L Absolute Lymphs (auto) 1.01 (1.0-4.6) x10^3/uL Absolute Monos (auto) 0.58 (0.0-1.3) x10^3/uL Absolute Nucleated RBC 0.00 (0.00-0.01) x10^3u/L Lymphocytes % 11.6 L (24.0-44.0) % Monocytes % 6.7 (0.0-12.0) % Eosinophils % 2.4 (0.00-5.0) % Basophils % 1.7 (0.0-0.4) % Absolute Granulocytes 6.73 (1.4-6.9) x10^3/uL Basophils # 0.15 (0-0.4) x10^3/uL Sodium (137-145) mmol/L Potassium (3.5-5.1) mmol/L Chloride (98-107) mmol/L Carbon Dioxide (22-30) mmol/L Anion Gap (5-15) MEQ/L BUN (7-17) mg/dL Creatinine (0.52-1.04) mg/dL Estimated GFR ML/MIN Glucose (74-106) mg/dL Lactic Acid (0.4-2.0) Calcium (8.4-10.2) mg/dL Total Bilirubin (0.2-1.3) mg/dL AST (14-36) U/L ALT (0-35) U/L Alkaline Phosphatase (38-126) U/L Troponin I < 0.012 (0.000-0.034) ng/mL Serum Total Protein (6.3-8.2) g/dL Albumin (3.5-5.0) g/dL Thyroxine (T4) (5.53-10.96) ug/dL TSH 3rd Generation (0.47-4.68) mIU/L Serum , Qual NEGATIVE (Negative) Urinalys Dipstick Clnc Urine Color (YELLOW) Urine Appearance (CLEAR) Urine pH (5-6) Ur Specific Roach (1.005-1.025) POC Urine Protein Conf (Negative) Urine Ketones (NEGATIVE) Urine Nitrite (NEGATIVE) Urine Bilirubin (NEGATIVE) Urine Urobilinogen (0-1) mg/dL Urine Leukocytes (NEGATIVE) Urine WBC (Auto) (0-5) /HPF Urine RBC (Auto) (0-2) /HPF U Hyaline Cast (Auto) (0-2) /LPF U Epithel Cells (Auto) (FEW) /HPF Urine Bacteria (Auto) (NEGATIVE) /HPF Urine RBC (0-5) Buster/ul Unidentified Crystals (NEGATIVE) /HPF Urine Mucus (Auto) (NEGATIVE) /HPF Ur Culture Indicated? Urine Glucose (NEGATIVE) mg/dL Salicylates (2-20) mg/dL Urine Opiates Level (NEGATIVE) Ur Methadone (NEGATIVE) Acetaminophen (10-30) ug/ml Urine Barbiturates (NEGATIVE) Ur Phencyclidine (PCP) (NEGATIVE) Urine Amphetamine (NEGATIVE) U Benzodiazepine Level (NEGATIVE) Urine Cocaine (NEGATIVE) Urine Marijuana (THC) (NEGATIVE) Ethyl Alcohol (0-10) mg/dL - Progress Progress: improved, re-examined Progress Note: 02/05/22 19:11 pt less agitated now but now somnolent - awaiting more alert stat prior to re- eval and final dispo since she could qualify for discharge if more alert. 02/05/22 20:02 pt is still somnolent at this point and several medical concerns. 02/05/22 21:[address] Long and will place on obs until her sensorium clears and monitor her overnight rather than DC to residential at this time. Discussed with : Sharath Will see patient in: hospital (observation) Counseled pt/family regarding: drug and/or alcohol abuse, lab results, diagnosis , need for follow-up, rad results - Departure Departure Disposition: Observation Clinical Impression: UTI (urinary tract infection), Elevated serum creatinine, Concussion, stimulant and opiod use Condition: Good Critical Care Time: No Referrals: BILLY COMER MD [Primary Care Provider] - Follow up/PCP as directed Instructions: Concussion, Adult (DC), Urinary Tract Infection, Adult (DC), Kidney Failure (DC), Drug Abuse and Drug Addiction (DC), Preventing Falls in Older Adults Additional Instructions: you have a recurrence of your renal insufficiency and urinary infection and need follow-up with your Drs for the optimal care of these conditions. You have had a concussion and need follow-up even though CT did not show immediate injury and need f/u also for your multiple spine disc injuries. There is evidence that you may have had a stoke some time ago and should see the neurologist for evaluation. THere is disease in your arteries to see your Dr. to evaluate. see your dr. for your blood pressure. There is atrophy of the right kidney to see your Dr. for. return meantime if not improving or other concerns.
[2022-02-05] MEDS ORDERED: Sodium Chloride 0.9% 1000 ML 1,000 ML IV STA (15:13)
[2022-02-05] MEDS ORDERED: Ativan 2 MG/1 ML VIAL IV ONE (15:16)
[2022-02-05] MEDS ORDERED: Ativan 2 MG/1 ML VIAL ONE (15:58)
[2022-02-05] MEDS ORDERED: Sodium Chloride 0.9% 1000 ML 1,000 ML ONE (15:58)
[2022-02-05 16:41] LABS: Absolute Neutrophil Ct (ANC) 6.73 x10^3/uL (1.4-6.9); Basophil (Absolute #) 0.15 x10^3/uL (0-0.4); Eosinophil % 2.4 % (0.00-5.0); Eosinophil (Absolute #) 0.21 x10^3/uL (0-0.5); Hematocrit 35.3 % (35-47); Lymphocyte (Absolute #) 1.01 x10^3/uL (1.0-4.6); Lymphocytes % 11.6 % (24.0-44.0); Mean Cell Volume 95.1 fL (78-100); Mean Corpuscular Hemoglobin 29.6 pg (26-32); Mean Corpuscular Hgb Concent. 31.2 g/dL (32-36); Mean Platelet Volume 11.5 fL (7.5-11.0); Monocyte (Absolute #) 0.58 x10^3/uL (0.0-1.3); Monocytes % 6.7 % (0.0-12.0); Neutrophil % 77.3 % (36.0-66.0); Platelet Count 249 x10^3/uL (150-450); Red Blood Count 3.71 x10^6/uL (4.1-5.4); Red Cell Distribution Width 13.8 % (11.5-14.0); White Blood Count 8.7 x10^3/uL (4.0-10.5)
[2022-02-05 17:21] LABS: Appearance SLIGHTLY CLOUDY (CLEAR); Barbiturate,Urine NEGATIVE (NEGATIVE); Benzodiazepine,Urine NEGATIVE (NEGATIVE); Bilirubin NEGATIVE (NEGATIVE); Cocaine,Urine NEGATIVE (NEGATIVE); Dipstick done @ ? MAIN LAB; Glucose NEGATIVE (NEGATIVE); Ketones NEGATIVE (NEGATIVE); Methadone,Urine NEGATIVE (NEGATIVE); Nitrite POSITIVE (NEGATIVE); Opiate,Urine POSITIVE (NEGATIVE); PCP,Urine NEGATIVE (NEGATIVE); Ph 5.5 (5-6); Protein,Urine Dip NEGATIVE (Negative); RBC TRACE-INTACT Ery/ul (0-5); THC,Urine NEGATIVE (NEGATIVE); Urobilinogen 0.2 mg/dL (0-1)
[2022-02-05 17:25] LABS: Bacteria MODERATE /HPF (NEGATIVE); Epithelial Cells RARE /HPF (FEW); Hyaline Casts 0-2 /LPF (0-2); Mucus SLIGHT /HPF (NEGATIVE); Urine Cultured Indicated? YES; WBC >100 /HPF (0-5)
[2022-02-05 17:49] LABS: Amphetamine,Urine POSITIVE (NEGATIVE)
[2022-02-05 18:32] LABS: ACETAMINOPHEN < 10 ug/ml (10-30); ALBUMIN 4.2 g/dL (3.5-5.0); ALKALINE PHOSPHATASE 75 U/L (38-126); BLOOD UREA NITROGEN 40 mg/dL (7-17); CHLORIDE 107 mmol/L (98-107); Calcium 9.3 mg/dL (8.4-10.2); Carbon Dioxide 23 mmol/L (22-30); Creatinine 1 1.75 mg/dL (0.52-1.04); EST GLOMERULAR FILTRATION RATE 31.7 ML/MIN; ETHYL ALCOHOL < 10 mg/dL (0-10); Glucose 97 mg/dL (74-106); Potassium 3.9 mmol/L (3.5-5.1); SALICYLATE < 1.0 mg/dL (2-20); SGOT/AST 44 U/L (14-36); SGPT/ALT 26 U/L (0-35); SODIUM 139 mmol/L (137-145); T4 (Thyroxine) 7.06 ug/dL (5.53-10.96); Total Protein 7.3 g/dL (6.3-8.2)
--- NOTE | 2022-02-05 18:50 | XRAY ---
Indication: Posterior head injury following fall. Multiple contiguous axial images obtained through the head without contrast. Comparison: None Age-appropriate global atrophy. No acute intracranial hemorrhage, abnormal extra-axial fluid collection, or mass effect. Remote lacunar infarct left insula. Fourth ventricle is midline without hydrocephalus. Bony calvarium intact. Old right facial bone fracture with intact fixation hardware. Visualized paranasal sinuses and mastoid air cells are clear. Impression: No acute intracranial abnormalities. Incidental remote lacunar infarct left insula. Comment: Preliminary interpretation made by C. No critical discrepancy.
--- NOTE | 2022-02-05 18:53 | XRAY ---
Indication: Posterior head injury following fall. Multiple contiguous axial images obtained through the cervical spine. Sagittal and coronal reformatted images obtained. Comparison: None Study is degraded by mild motion artifact throughout. Axial images grossly negative for acute fracture, suspicious bony lesions, or spinal canal stenosis. Mild C5-C7 degenerative endplate spurring and mild/moderate multilevel bilateral degenerative facet arthropathy. Sagittal and coronal reformatted images demonstrates grossly normal alignment with C5-C7 disc space narrowing. No gross acute compression fracture, subluxation, or jumped facet. Normal appearing cranial cervical junction. Visualized noncontrasted soft tissues grossly unremarkable. Lung apices grossly clear. Impression: 1. Motion artifact. 2. Grossly negative for acute fracture/subluxation. 3. Incidental C5-C7 degenerative changes. Comment: Preliminary interpretation made by [facility]. No critical discrepancy.
--- NOTE | 2022-02-05 18:57 | XRAY ---
Indication: Pain following fall. Multiple contiguous axial images obtained through the thoracic spine. Sagittal and coronal reformatted images obtained. Comparison: None Axial images negative for acute fracture, suspicious bony lesions, or spinal canal stenosis. Minimal/mild multilevel anterior endplate spurring greatest at T10-T11. Sagittal and coronal reformatted images demonstrates normal alignment with vertebral body heights/disc space is maintained. No acute compression fracture or subluxation. Visualized lungs demonstrates bilateral dependent atelectasis. Incidental mild scattered aortic calcifications and atrophic right kidney. Impression: 1. Negative acute fracture/subluxation. 2. Incidental multilevel degenerative changes, arteriosclerotic disease, and atrophic right kidney. Comment: Preliminary interpretation made by [facility]. No critical discrepancy.
--- NOTE | 2022-02-05 19:00 | XRAY ---
Indication: Pain following fall. Multiple contiguous axial images obtained through the lumbar spine. Sagittal and coronal reformatted images obtained. Comparison: June 02, 2021 Axial images again negative for acute fracture, suspicious bony lesions, or spinal canal stenosis. There remains minimal broad-based disc bulge at L3-S1 levels and mild/moderate bilateral L4-S1 degenerative facet hypertrophy. Sagittal and coronal reformatted images demonstrates new mild levoscoliosis centered at L3. Vertebral body heights and disc spaces are maintained. No acute compression fracture or subluxation. Visualized noncontrasted soft tissues again demonstrates mild scattered aortoiliac calcifications and right renal atrophy. Impression: 1. Continued negative acute fracture/subluxation. 2. Again incidental multilevel degenerative changes, arteriosclerotic disease, and atrophic right kidney. Comment: Preliminary interpretation made by C. No critical discrepancy.
[2022-02-05] MEDS ORDERED: ROCEPHIN 1 Gm-D5w 50 ml Bag** 1 G/50 ML IVPB IV STA (19:46)
[2022-02-05] MEDS ORDERED: ROCEPHIN 1 Gm-D5w 50 ml Bag** 1 G/50 ML IVPB IV ONE (19:51)
[2022-02-05 21:39] LABS: INFLUENZA A NEGATIVE (NEGATIVE); INFLUENZA B NEGATIVE (NEGATIVE); RESPIRATORY SYNCTIAL VIRUS NEGATIVE (Negative); SARS-CoV-2 Xpert Express NEGATIVE (NEGATIVE)
[2022-02-05] MEDS ORDERED: DUONEB 0.5-3 MG/3 ml Neb IH PRN (22:20)
[2022-02-05] MEDS ORDERED: Ativan 1 MG PO PRN (22:20)
[2022-02-05] MEDS ORDERED: TYLENOL 325 MG PO PRN (22:20)
[2022-02-05] MEDS ORDERED: Zofran 4 MG/2 ML VIAL IV PRN (22:20)
[2022-02-05] MEDS ORDERED: HUMULIN R SQ PRN (22:20)
[2022-02-06 05:00] LABS: Absolute Neutrophil Ct (ANC) 2.56 x10^3/uL (1.4-6.9); Basophil (Absolute #) 0.11 x10^3/uL (0-0.4); Eosinophil % 5.5 % (0.00-5.0); Eosinophil (Absolute #) 0.27 x10^3/uL (0-0.5); Hematocrit 34.9 % (35-47); Hemoglobin 11.3 g/dL (12.0-16.0); Lymphocyte (Absolute #) 1.48 x10^3/uL (1.0-4.6); Mean Cell Volume 91.1 fL (78-100); Mean Corpuscular Hemoglobin 29.5 pg (26-32); Mean Corpuscular Hgb Concent. 32.4 g/dL (32-36); Mean Platelet Volume 11.4 fL (7.5-11.0); Monocytes % 10.1 % (0.0-12.0); Neutrophil % 51.8 % (36.0-66.0); Platelet Count 252 x10^3/uL (150-450); Red Blood Count 3.83 x10^6/uL (4.1-5.4); Red Cell Distribution Width 14.2 % (11.5-14.0); White Blood Count 4.9 x10^3/uL (4.0-10.5)
[2022-02-06 05:22] LABS: ALBUMIN 3.9 g/dL (3.5-5.0); ANION GAP 10.4 MEQ/L (5-15); BILIRUBIN,TOTAL 0.6 mg/dL (0.2-1.3); Calcium 8.3 mg/dL (8.4-10.2); Creatinine 1 1.26 mg/dL (0.52-1.04); EST GLOMERULAR FILTRATION RATE 46.4 ML/MIN; Potassium 3.5 mmol/L (3.5-5.1); Total Protein 6.8 g/dL (6.3-8.2)
[2022-02-06] MEDS: Pepcid 20 MG VIAL IV SCH ×3 (06:15→15:06)
[2022-02-06] MEDS: Sodium Chloride 0.9% 1000 ML 1,000 ML IV SCH ×2 (09:52)
[2022-02-06] MEDS ORDERED: Lopressor 25MG Tab PO SCH (15:00)
[2022-02-06] MEDS ORDERED: Depakote EXTENDED RELEASE 250 MG PO SCH (15:00)
[2022-02-06] MEDS ORDERED: ZOCOR 20MG PO SCH (15:00)
[2022-02-06] MEDS ORDERED: NORVASC 5 MG PO SCH (15:00)
[2022-02-06] MEDS ORDERED: MYRBETRIQ PO SCH (15:00)
[2022-02-06] MEDS ORDERED: Lopressor 50 MG PO SCH (15:00)
[2022-02-06] MEDS ORDERED: ZOLOFT 50 MG TABLET PO SCH (15:00)
--- NOTE | 2022-02-06 15:07 | PCM.SSS ---
History of Present Illness - Chief Complaint Chief Complaint: ALtered mental status/Concussion/Meth and opiate effects/UT I/Renal insuf History of Present Illness: is a 56 year old female.Pt brought in by EMS due to fall witnessed by bystanders, complaining of headache , stated by pt that she got tripped up with her dog and fell. Has reported hx of alleged use of meth in past by EMS at scene none known today. Pt also complaining of pain up and down entire spine but nontender chest and abd and no SOBreath or CP. had dizziness a few days ago and nne today and none as a prodrome today. Occurred: just prior to arrival Reason for Fall: fell from standing pos Injuries/Pain Location: head, neck Loss of Consciousness: no loss of consciousness Quality: sharpness Severity of Pain-Max: moderate Severity of Pain-Current: moderate Modifying Factors: Improves With: nothing Associated Symptoms (Fall): back pain, neck pain - Review of Systems Constitutional: Lethargy, No Fever, No Chills Eyes: No Symptoms Ears, Nose, & Throat: No Symptoms Respiratory: No Cough, No Short Of Breath Cardiac: No Chest Pain, No Edema, No Syncope Abdominal/Gastrointestinal: No Abdominal Pain, No Nausea, No Vomiting, No Diarrhea Genitourinary Symptoms: No Dysuria Musculoskeletal: No Back Pain, No Neck Pain Skin: No Rash Neurological: No Dizziness, No Focal Weakness, No Sensory Changes Psychological: Drug Abuse, Emotional Lability, Mood Changes Endocrine: No Symptoms Hematologic/Lymphatic: No Symptoms Immunological/Allergic: No Symptoms Medications & Allergies Home Medications: Home Medication List Levothyroxine Sodium 100 Mcg [Synthroid 100 Mcg] 200 mcg PO QHS 11/25/12 [History Confirmed 02/05/22] Metoprolol Tartrate 50 mg [Lopressor 50 MG] 75 mg PO DAILY 11/25/12 [History Confirmed 02/05/22] Simvastatin 20Mg [Zocor 20Mg] 20 mg PO DAILY 11/25/12 [History Confirmed 02/05/22] Amlodipine Besylate 5 mg [Norvasc 5 mg] 5 mg PO DAILY 02/05/22 [History Confirmed 02/05/22] Divalproex Sodium [Divalproex Sodium ER] 500 mg PO BID 02/05/22 [History Confirmed 02/05/22] Mirabegron [Myrbetriq] 50 mg PO DAILY 02/05/22 [History Confirmed 02/05/22] Sertraline HCl [Zoloft] 25 mg PO DAILY 02/05/22 [History Confirmed 02/05/22] Cephalexin Mh 500 mg [Keflex 500 mg] 500 mg PO QID #28 cap 02/06/22 [Rx] Allergies/Adverse Reactions: Allergies Allergy/AdvReac Type Severity Reaction Status Date / Time No Known Drug Allergies Allergy Verified 02/05/22 22:25 - Past Medical History Past Medical History: Yes Neurological History: No Pertinent History ENT History: No Pertinent History Cardiac History: High Cholesterol, Hypertension Respiratory History: No Pertinent History Endocrine Medical History: Hypothyroidism Musculoskelatal History: Arthritis GI Medical History: GERD, Hepatitis History: Renal Disease Pyscho-Social History: Bipolar, Depression Reproductive Disorders: No Pertinent History Comment: CHRONIC ALCOHOLIC. SUBSTANCE ABUSE USER-METH. pt has hep c. pt very poor historian at this time. most of history obtained from previous documentation - Female History Are you now?: No - Past Surgical History Past Surgical History: Yes Neuro Surgical History: No Pertinent History Cardiac History: No Pertinent History Respiratory Surgery: No Pertinent History GI Surgical History: No Pertinent History Genitourinary Surgical Hx: Kidney Surgery Musculskeletal Surgical Hx: Orthopedic Surgery Female Surgical History: Hysterectomy, Tubal Ligation Other Surgical History: reimplantation of ureter - Social History Smoking Status: Current every day smoker How long have you smoked: 30 Exposure to second hand smoke: No Alcohol: None Drug Use: methamphetamines, other Significant Family History: no pertinent family hx - Physical Exam Vital Signs: Vital Signs - 24 hr Temp Pulse Resp BP Pulse Ox 02/06/22 11:52 97.9 F 92 H 16 182/82 94 L 02/06/22 08:15 96 02/06/22 07:33 97.9 F 82 14 170/76 96 02/06/22 04:00 97.6 F 93 H 15 149/76 95 02/05/22 23:30 91 H 18 94 L 02/05/22 23:00 94 L 02/05/22 22:41 95.5 F 97 H 22 168/89 94 L 02/05/22 21:30 97 General Appearance: no apparent distress, alert Neurologic Exam: alert, oriented x 3, cooperative, normal mood/affect, nml cerebellar function, nml station & gait, sensation nml, No motor deficits Eye Exam: PERRL/EOMI, eyes nml inspection Ears, Nose, Throat Exam: normal ENT inspection, TMs normal, pharynx normal, moist mucous membranes Neck Exam: normal inspection, non-tender, supple, full range of motion Respiratory Exam: normal breath sounds, lungs clear, No respiratory distress Cardiovascular Exam: regular rate/rhythm, normal heart sounds, normal peripheral pulses Gastrointestinal/Abdomen Exam: soft, normal bowel sounds, No tenderness, No mass Back Exam: normal inspection, normal range of motion, No CVA tenderness, No vertebral tenderness Extremity Exam: normal inspection, normal range of motion, pelvis stable Skin Exam: normal color, warm, dry, No rash Lymphatic Exam: No adenopathy Results - Labs Lab/Micro Results: Lab Results-Last 24 Hours 02/05/22 02/05/22 02/05/22 Range/Units 16:30 16:30 16:30 WBC 8.7 (4.0-10.5) x10^3/uL RBC 3.71 L (4.1-5.4) x10^6/uL Hgb 11.0 L (12.0-16.0) g/dL Hct 35.3 (35-47) % MCV 95.1 (78-100) fL MCH 29.6 (26-32) pg MCHC 31.2 L (32-36) g/dL RDW 13.8 (11.5-14.0) % Plt Count 249 (150-450) x10^3/uL MPV 11.5 H (7.5-11.0) fL Gran % 77.3 H (36.0-66.0) % Immature Gran % (Auto) 0.3 (0.00-0.4) % Nucleat RBC Rel Count 0.0 (0.00-0.1) % Eos # (Auto) 0.21 (0-0.5) x10^3/uL Immature Gran # (Auto) 0.03 (0.00-0.03) x10^3u/L Absolute Lymphs (auto) 1.01 (1.0-4.6) x10^3/uL Absolute Monos (auto) 0.58 (0.0-1.3) x10^3/uL Absolute Nucleated RBC 0.00 (0.00-0.01) x10^3u/L Lymphocytes % 11.6 L (24.0-44.0) % Monocytes % 6.7 (0.0-12.0) % Eosinophils % 2.4 (0.00-5.0) % Basophils % 1.7 (0.0-0.4) % Absolute Granulocytes 6.73 (1.4-6.9) x10^3/uL Basophils # 0.15 (0-0.4) x10^3/uL Sodium (137-145) mmol/L Potassium (3.5-5.1) mmol/L Chloride (98-107) mmol/L Carbon Dioxide (22-30) mmol/L Anion Gap (5-15) MEQ/L BUN (7-17) mg/dL Creatinine (0.52-1.04) mg/dL Estimated GFR ML/MIN Glucose (74-106) mg/dL Lactic Acid (0.4-2.0) Calcium (8.4-10.2) mg/dL Total Bilirubin (0.2-1.3) mg/dL AST (14-36) U/L ALT (0-35) U/L Alkaline Phosphatase (38-126) U/L Troponin I < 0.012 (0.000-0.034) ng/mL Serum Total Protein (6.3-8.2) g/dL Albumin (3.5-5.0) g/dL Thyroxine (T4) (5.53-10.96) ug/dL TSH 3rd Generation (0.47-4.68) mIU/L Serum , Qual NEGATIVE (Negative) Urinalys Dipstick Clnc Urine Color (YELLOW) Urine Appearance (CLEAR) Urine pH (5-6) Ur Specific [place] (1.005-1.025) POC Urine Protein Conf (Negative) Urine Ketones (NEGATIVE) Urine Nitrite (NEGATIVE) Urine Bilirubin (NEGATIVE) Urine Urobilinogen (0-1) mg/dL Urine Leukocytes (NEGATIVE) Urine WBC (Auto) (0-5) /HPF Urine RBC (Auto) (0-2) /HPF U Hyaline Cast (Auto) (0-2) /LPF U Epithel Cells (Auto) (FEW) /HPF Urine Bacteria (Auto) (NEGATIVE) /HPF Urine RBC (0-5) Buster/ul Unidentified Crystals (NEGATIVE) /HPF Urine Mucus (Auto) (NEGATIVE) /HPF Ur Culture Indicated? Urine Glucose (NEGATIVE) mg/dL Salicylates (2-20) mg/dL Urine Opiates Level (NEGATIVE) Ur Methadone (NEGATIVE) Acetaminophen (10-30) ug/ml Urine Barbiturates (NEGATIVE) Ur Phencyclidine (PCP) (NEGATIVE) Urine Amphetamine (NEGATIVE) U Benzodiazepine Level (NEGATIVE) Urine Cocaine (NEGATIVE) Urine Marijuana (THC) (NEGATIVE) Ethyl Alcohol (0-10) mg/dL Influenza Type A Ag (NEGATIVE) Influenza Type B Ag (NEGATIVE) RSV (PCR) (Negative) SARS-CoV-2 (PCR) (NEGATIVE) 02/05/22 02/05/22 02/05/22 Range/Units 16:30 16:30 16:48 WBC (4.0-10.5) x10^3/uL RBC (4.1-5.4) x10^6/uL Hgb (12.0-16.0) g/dL Hct (35-47) % MCV (78-100) fL MCH (26-32) pg MCHC (32-36) g/dL RDW (11.5-14.0) % Plt Count (150-450) x10^3/uL MPV (7.5-11.0) fL Gran % (36.0-66.0) % Immature Gran % (Auto) (0.00-0.4) % Nucleat RBC Rel Count (0.00-0.1) % Eos # (Auto) (0-0.5) x10^3/uL Immature Gran # (Auto) (0.00-0.03) x10^3u/L Absolute Lymphs (auto) (1.0-4.6) x10^3/uL Absolute Monos (auto) (0.0-1.3) x10^3/uL Absolute Nucleated RBC (0.00-0.01) x10^3u/L Lymphocytes % (24.0-44.0) % Monocytes % (0.0-12.0) % Eosinophils % (0.00-5.0) % Basophils % (0.0-0.4) % Absolute Granulocytes (1.4-6.9) x10^3/uL Basophils # (0-0.4) x10^3/uL Sodium 139 (137-145) mmol/L Potassium 3.9 (3.5-5.1) mmol/L Chloride 107 (98-107) mmol/L Carbon Dioxide 23 (22-30) mmol/L Anion Gap 13.0 (5-15) MEQ/L BUN 40 H (7-17) mg/dL Creatinine 1.75 H (0.52-1.04) mg/dL Estimated GFR 31.7 ML/MIN Glucose 97 (74-106) mg/dL Lactic Acid (0.4-2.0) Calcium 9.3 (8.4-10.2) mg/dL Total Bilirubin 0.60 (0.2-1.3) mg/dL AST 44 H (14-36) U/L ALT 26 (0-35) U/L Alkaline Phosphatase 75 (38-126) U/L Troponin I (0.000-0.034) ng/mL Serum Total Protein 7.3 (6.3-8.2) g/dL Albumin 4.2 (3.5-5.0) g/dL Thyroxine (T4) 7.06 (5.53-10.96) ug/dL TSH 3rd Generation 1.170 (0.47-4.68) mIU/L Serum , Qual (Negative) Urinalys Dipstick Clnc Urine Color (YELLOW) Urine Appearance (CLEAR) Urine pH (5-6) Ur Specific [place] (1.005-1.025) POC Urine Protein Conf (Negative) Urine Ketones (NEGATIVE) Urine Nitrite (NEGATIVE) Urine Bilirubin (NEGATIVE) Urine Urobilinogen (0-1) mg/dL Urine Leukocytes (NEGATIVE) Urine WBC (Auto) (0-5) /HPF Urine RBC (Auto) (0-2) /HPF U Hyaline Cast (Auto) (0-2) /LPF U Epithel Cells (Auto) (FEW) /HPF Urine Bacteria (Auto) (NEGATIVE) /HPF Urine RBC (0-5) Buster/ul Unidentified Crystals (NEGATIVE) /HPF Urine Mucus (Auto) (NEGATIVE) /HPF Ur Culture Indicated? Urine Glucose (NEGATIVE) mg/dL Salicylates < 1.0 L (2-20) mg/dL Urine Opiates Level POSITIVE (NEGATIVE) Ur Methadone NEGATIVE (NEGATIVE) Acetaminophen < 10 L (10-30) ug/ml Urine Barbiturates NEGATIVE (NEGATIVE) Ur Phencyclidine (PCP) NEGATIVE (NEGATIVE) Urine Amphetamine POSITIVE (NEGATIVE) U Benzodiazepine Level NEGATIVE (NEGATIVE) Urine Cocaine NEGATIVE (NEGATIVE) Urine Marijuana (THC) NEGATIVE (NEGATIVE) Ethyl Alcohol < 10 (0-10) mg/dL Influenza Type A Ag (NEGATIVE) Influenza Type B Ag (NEGATIVE) RSV (PCR) (Negative) SARS-CoV-2 (PCR) (NEGATIVE) 02/05/22 02/05/22 02/05/22 Range/Units 16:48 17:05 18:58 WBC (4.0-10.5) x10^3/uL RBC (4.1-5.4) x10^6/uL Hgb (12.0-16.0) g/dL Hct (35-47) % MCV (78-100) fL MCH (26-32) pg MCHC (32-36) g/dL RDW (11.5-14.0) % Plt Count (150-450) x10^3/uL MPV (7.5-11.0) fL Gran % (36.0-66.0) % Immature Gran % (Auto) (0.00-0.4) % Nucleat RBC Rel Count (0.00-0.1) % Eos # (Auto) (0-0.5) x10^3/uL Immature Gran # (Auto) (0.00-0.03) x10^3u/L Absolute Lymphs (auto) (1.0-4.6) x10^3/uL Absolute Monos (auto) (0.0-1.3) x10^3/uL Absolute Nucleated RBC (0.00-0.01) x10^3u/L Lymphocytes % (24.0-44.0) % Monocytes % (0.0-12.0) % Eosinophils % (0.00-5.0) % Basophils % (0.0-0.4) % Absolute Granulocytes (1.4-6.9) x10^3/uL Basophils # (0-0.4) x10^3/uL Sodium (137-145) mmol/L Potassium (3.5-5.1) mmol/L Chloride (98-107) mmol/L Carbon Dioxide (22-30) mmol/L Anion Gap (5-15) MEQ/L BUN (7-17) mg/dL Creatinine (0.52-1.04) mg/dL Estimated GFR ML/MIN Glucose (74-106) mg/dL Lactic Acid 1.0 (0.4-2.0) Calcium (8.4-10.2) mg/dL Total Bilirubin (0.2-1.3) mg/dL AST (14-36) U/L ALT (0-35) U/L Alkaline Phosphatase (38-126) U/L Troponin I < 0.012 (0.000-0.034) ng/mL Serum Total Protein (6.3-8.2) g/dL Albumin (3.5-5.0) g/dL Thyroxine (T4) (5.53-10.96) ug/dL TSH 3rd Generation (0.47-4.68) mIU/L Serum , Qual (Negative) Urinalys Dipstick Clnc MAIN LAB Urine Color YELLOW (YELLOW) Urine Appearance SLIGHTLY CLOUDY (CLEAR) Urine pH 5.5 (5-6) Ur Specific [place] 1.020 (1.005-1.025) POC Urine Protein Conf NEGATIVE (Negative) Urine Ketones NEGATIVE (NEGATIVE) Urine Nitrite POSITIVE (NEGATIVE) Urine Bilirubin NEGATIVE (NEGATIVE) Urine Urobilinogen 0.2 (0-1) mg/dL Urine Leukocytes MODERATE (NEGATIVE) Urine WBC (Auto) >100 (0-5) /HPF Urine RBC (Auto) 11-15 (0-2) /HPF U Hyaline Cast (Auto) 0-2 (0-2) /LPF U Epithel Cells (Auto) RARE (FEW) /HPF Urine Bacteria (Auto) MODERATE (NEGATIVE) /HPF Urine RBC TRACE-INTACT (0-5) Buster/ul Unidentified Crystals 2-5 (NEGATIVE) /HPF Urine Mucus (Auto) SLIGHT (NEGATIVE) /HPF Ur Culture Indicated? YES Urine Glucose NEGATIVE (NEGATIVE) mg/dL Salicylates (2-20) mg/dL Urine Opiates Level (NEGATIVE) Ur Methadone (NEGATIVE) Acetaminophen (10-30) ug/ml Urine Barbiturates (NEGATIVE) Ur Phencyclidine (PCP) (NEGATIVE) Urine Amphetamine (NEGATIVE) U Benzodiazepine Level (NEGATIVE) Urine Cocaine (NEGATIVE) Urine Marijuana (THC) (NEGATIVE) Ethyl Alcohol (0-10) mg/dL Influenza Type A Ag (NEGATIVE) Influenza Type B Ag (NEGATIVE) RSV (PCR) (Negative) SARS-CoV-2 (PCR) (NEGATIVE) 02/05/22 02/05/22 02/06/22 Range/Units 19:15 23:25 04:35 WBC 4.9 (4.0-10.5) x10^3/uL RBC 3.83 L (4.1-5.4) x10^6/uL Hgb 11.3 L (12.0-16.0) g/dL Hct 34.9 L (35-47) % MCV 91.1 (78-100) fL MCH 29.5 (26-32) pg MCHC 32.4 (32-36) g/dL RDW 14.2 H (11.5-14.0) % Plt Count 252 (150-450) x10^3/uL MPV 11.4 H (7.5-11.0) fL Gran % 51.8 (36.0-66.0) % Immature Gran % (Auto) 0.4 (0.00-0.4) % Nucleat RBC Rel Count 0.0 (0.00-0.1) % Eos # (Auto) 0.27 (0-0.5) x10^3/uL Immature Gran # (Auto) 0.02 (0.00-0.03) x10^3u/L Absolute Lymphs (auto) 1.48 (1.0-4.6) x10^3/uL Absolute Monos (auto) 0.50 (0.0-1.3) x10^3/uL Absolute Nucleated RBC 0.00 (0.00-0.01) x10^3u/L Lymphocytes % 30.0 (24.0-44.0) % Monocytes % 10.1 (0.0-12.0) % Eosinophils % 5.5 H (0.00-5.0) % Basophils % 2.2 (0.0-0.4) % Absolute Granulocytes 2.56 (1.4-6.9) x10^3/uL Basophils # 0.11 (0-0.4) x10^3/uL Sodium (137-145) mmol/L Potassium (3.5-5.1) mmol/L Chloride (98-107) mmol/L Carbon Dioxide (22-30) mmol/L Anion Gap (5-15) MEQ/L BUN (7-17) mg/dL Creatinine (0.52-1.04) mg/dL Estimated GFR ML/MIN Glucose (74-106) mg/dL Lactic Acid (0.4-2.0) Calcium (8.4-10.2) mg/dL Total Bilirubin (0.2-1.3) mg/dL AST (14-36) U/L ALT (0-35) U/L Alkaline Phosphatase (38-126) U/L Troponin I < 0.012 (0.000-0.034) ng/mL Serum Total Protein (6.3-8.2) g/dL Albumin (3.5-5.0) g/dL Thyroxine (T4) (5.53-10.96) ug/dL TSH 3rd Generation (0.47-4.68) mIU/L Serum , Qual (Negative) Urinalys Dipstick Clnc Urine Color (YELLOW) Urine Appearance (CLEAR) Urine pH (5-6) Ur Specific [place] (1.005-1.025) POC Urine Protein Conf (Negative) Urine Ketones (NEGATIVE) Urine Nitrite (NEGATIVE) Urine Bilirubin (NEGATIVE) Urine Urobilinogen (0-1) mg/dL Urine Leukocytes (NEGATIVE) Urine WBC (Auto) (0-5) /HPF Urine RBC (Auto) (0-2) /HPF U Hyaline Cast (Auto) (0-2) /LPF U Epithel Cells (Auto) (FEW) /HPF Urine Bacteria (Auto) (NEGATIVE) /HPF Urine RBC (0-5) Buster/ul Unidentified Crystals (NEGATIVE) /HPF Urine Mucus (Auto) (NEGATIVE) /HPF Ur Culture Indicated? Urine Glucose (NEGATIVE) mg/dL Salicylates (2-20) mg/dL Urine Opiates Level (NEGATIVE) Ur Methadone (NEGATIVE) Acetaminophen (10-30) ug/ml Urine Barbiturates (NEGATIVE) Ur Phencyclidine (PCP) (NEGATIVE) Urine Amphetamine (NEGATIVE) U Benzodiazepine Level (NEGATIVE) Urine Cocaine (NEGATIVE) Urine Marijuana (THC) (NEGATIVE) Ethyl Alcohol (0-10) mg/dL Influenza Type A Ag NEGATIVE (NEGATIVE) Influenza Type B Ag NEGATIVE (NEGATIVE) RSV (PCR) NEGATIVE (Negative) SARS-CoV-2 (PCR) NEGATIVE (NEGATIVE) 02/06/22 Range/Units 04:35 WBC (4.0-10.5) x10^3/uL RBC (4.1-5.4) x10^6/uL Hgb (12.0-16.0) g/dL Hct (35-47) % MCV (78-100) fL MCH (26-32) pg MCHC (32-36) g/dL RDW (11.5-14.0) % Plt Count (150-450) x10^3/uL MPV (7.5-11.0) fL Gran % (36.0-66.0) % Immature Gran % (Auto) (0.00-0.4) % Nucleat RBC Rel Count (0.00-0.1) % Eos # (Auto) (0-0.5) x10^3/uL Immature Gran # (Auto) (0.00-0.03) x10^3u/L Absolute Lymphs (auto) (1.0-4.6) x10^3/uL Absolute Monos (auto) (0.0-1.3) x10^3/uL Absolute Nucleated RBC (0.00-0.01) x10^3u/L Lymphocytes % (24.0-44.0) % Monocytes % (0.0-12.0) % Eosinophils % (0.00-5.0) % Basophils % (0.0-0.4) % Absolute Granulocytes (1.4-6.9) x10^3/uL Basophils # (0-0.4) x10^3/uL Sodium 138 (137-145) mmol/L Potassium 3.5 (3.5-5.1) mmol/L Chloride 109 H (98-107) mmol/L Carbon Dioxide 23 (22-30) mmol/L Anion Gap 10.4 (5-15) MEQ/L BUN 27 H (7-17) mg/dL Creatinine 1.26 H (0.52-1.04) mg/dL Estimated GFR 46.4 ML/MIN Glucose 78 (74-106) mg/dL Lactic Acid (0.4-2.0) Calcium 8.3 L (8.4-10.2) mg/dL Total Bilirubin 0.60 (0.2-1.3) mg/dL AST 36 (14-36) U/L ALT 23 (0-35) U/L Alkaline Phosphatase 64 (38-126) U/L Troponin I (0.000-0.034) ng/mL Serum Total Protein 6.8 (6.3-8.2) g/dL Albumin 3.9 (3.5-5.0) g/dL Thyroxine (T4) (5.53-10.96) ug/dL TSH 3rd Generation (0.47-4.68) mIU/L Serum , Qual (Negative) Urinalys Dipstick Clnc Urine Color (YELLOW) Urine Appearance (CLEAR) Urine pH (5-6) Ur Specific [place] (1.005-1.025) POC Urine Protein Conf (Negative) Urine Ketones (NEGATIVE) Urine Nitrite (NEGATIVE) Urine Bilirubin (NEGATIVE) Urine Urobilinogen (0-1) mg/dL Urine Leukocytes (NEGATIVE) Urine WBC (Auto) (0-5) /HPF Urine RBC (Auto) (0-2) /HPF U Hyaline Cast (Auto) (0-2) /LPF U Epithel Cells (Auto) (FEW) /HPF Urine Bacteria (Auto) (NEGATIVE) /HPF Urine RBC (0-5) Buster/ul Unidentified Crystals (NEGATIVE) /HPF Urine Mucus (Auto) (NEGATIVE) /HPF Ur Culture Indicated? Urine Glucose (NEGATIVE) mg/dL Salicylates (2-20) mg/dL Urine Opiates Level (NEGATIVE) Ur Methadone (NEGATIVE) Acetaminophen (10-30) ug/ml Urine Barbiturates (NEGATIVE) Ur Phencyclidine (PCP) (NEGATIVE) Urine Amphetamine (NEGATIVE) U Benzodiazepine Level (NEGATIVE) Urine Cocaine (NEGATIVE) Urine Marijuana (THC) (NEGATIVE) Ethyl Alcohol (0-10) mg/dL Influenza Type A Ag (NEGATIVE) Influenza Type B Ag (NEGATIVE) RSV (PCR) (Negative) SARS-CoV-2 (PCR) (NEGATIVE) Microbiology 02/05/22 16:48 Urine Culture - Preliminary Urine, Void GRAM NEGATIVE ID AND SENSITIVITY PENDING - Radiology Impressions Radiology Exams & Impressions: Radiology Procedures Category Date Time Status CERVICAL SPINE WO CONTRAST [CT] Stat Exams 02/05/22 15:12 Completed HEAD WITHOUT CONTRAST [CT] Stat Exams 02/05/22 15:11 Completed LUMBAR SPINE W/O [CT] Stat Exams 02/05/22 15:12 Completed THORACIC SPINE W/O CONTRAST [CT] Stat Exams 02/05/22 15:12 Completed Assessment/Plan (1) UTI (urinary tract infection) Current Visit: Yes Status: Acute Qualifiers: Urinary tract infection type: acute pyelonephritis Qualified Code(s): N10 - Acute pyelonephritis Assessment & Plan: Chief Complaint Diagnosis ALtered mental status/Concussion/Meth and opiate effects/UTI/Renal insuf Allergies Allergy/AdvReac Type Severity Reaction Status Date / Time No Known Drug Allergies Allergy Verified 02/05/22 22:25 Vital Signs (Last 24 hours) Temp Pulse Resp BP Pulse Ox 02/06/22 11:52 97.9 F 92 H 16 182/82 94 L 02/06/22 08:15 96 02/06/22 07:33 97.9 F 82 14 170/76 96 02/06/22 04:00 97.6 F 93 H 15 149/76 95 02/05/22 23:30 91 H 18 94 L 02/05/22 23:00 94 L 02/05/22 22:41 95.5 F 97 H 22 168/89 94 L 02/05/22 21:30 97 Home Medications Medication Instructions Recorded Confirmed Last Taken Type Amlodipine Besylate 5 mg 5 mg PO DAILY 02/05/22 02/05/22 Unknown History [Norvasc 5 mg] Divalproex Sodium [Divalproex 500 mg PO BID 02/05/22 02/05/22 Unknown History Sodium ER] Mirabegron [Myrbetriq] 50 mg PO DAILY 02/05/22 02/05/22 Unknown History Sertraline HCl [Zoloft] 25 mg PO DAILY 02/05/22 02/05/22 Unknown History Cephalexin Mh 500 mg [Keflex 500 500 mg PO QID #28 cap 02/06/22 Unknown Rx mg] Current Medications Generic Name Dose Route Start Last Admin Trade Name Freq PRN Reason Stop Dose Admin Acetaminophen 650 mg 02/05/22 22:20 02/06/22 14:56 Acetaminophen 325 Mg Tablet PO 03/07/22 22:19 650 mg Q4H PRN PRN Administration PAIN AND/OR FEVER Amlodipine Besylate 5 mg 02/06/22 15:00 02/06/22 14:56 Amlodipine Besylate 5 Mg Tablet PO 03/08/22 14:59 5 mg DAILY OLIVIA Administration Divalproex Sodium 500 mg 02/06/22 15:00 02/06/22 14:55 Divalproex Sodium 250 Mg Tab Extended Release PO 03/08/22 14:59 500 mg BID OLIVIA Administration Famotidine 20 mg 02/05/22 22:20 02/06/22 06:15 Famotidine 20 Mg/1 Vial IV 03/07/22 22:19 Not Given Q12HT OLIVIA Sodium Chloride 1,000 mls @ 100 mls/hr 02/05/22 22:20 02/06/22 09:52 Sodium Chloride 0.9% 1000 Ml IV 03/07/22 22:19 100 mls/hr .Q10H OLIVIA Administration Ceftriaxone Sodium/Dextrose 1 g in 50 mls @ 100 mls/hr 02/06/22 22:00 Rocephin 1 Gm-D5w 50 Ml Bag IV 02/09/22 21:59 Q24H22 OLIVIA Levothyroxine Sodium 200 mcg 02/06/22 22:00 Levothyroxine Sodium 100 Mcg Tablet PO 03/08/22 21:59 QHS OLIVIA Lorazepam 1 mg 02/05/22 22:20 02/05/22 22:51 Lorazepam 1 Mg Tablet PO 03/07/22 22:19 1 mg QID PRN PRN Administration ANXIETY Metoprolol Tartrate 50 mg 02/06/22 15:00 02/06/22 14:53 Metoprolol Tartrate 50 Mg Tablet PO 03/08/22 14:59 50 mg DAILY OLIVIA Administration Metoprolol Tartrate 25 mg 02/06/22 15:00 02/06/22 14:54 Metoprolol Tartrate 25 Mg Tab PO 03/08/22 14:59 25 mg DAILY OLIVIA Administration Mirabegron 50 mg 02/06/22 15:00 02/06/22 14:52 Mirabegron 25 Mg Tab.Er.24h PO 03/08/22 14:59 50 mg DAILY OLIVIA Administration Ondansetron HCl 4 mg 02/05/22 22:20 Ondansetron Hcl 4 Mg/2 Ml Vial IV 03/07/22 22:19 Q6H PRN PRN NAUSEA/VOMITING Sertraline HCl 25 mg 02/06/22 15:00 02/06/22 14:49 Sertraline Hcl 50 Mg Tab PO 03/08/22 14:59 25 mg DAILY OLIVIA Administration Simvastatin 20 mg 02/06/22 15:00 02/06/22 14:56 Simvastatin 20 Mg Tablet PO 03/08/22 14:59 20 mg DAILY OLIVIA Administration Discontinued Medications Generic Name Dose Route Start Last Admin Trade Name Carol PRN Reason Stop Dose Admin Albuterol/Ipratropium 3 ml 02/05/22 22:20 Ipratropium/Albuterol Sulfate 3 Ml Ampul.Neb IH 03/07/22 22:19 Q4HPRN PRN SHORTNESS OF BREATH/WHEEZING Sodium Chloride 1,000 mls @ 999 mls/hr 02/05/22 15:13 02/05/22 17:42 Sodium Chloride 0.9% 1000 Ml IV 02/05/22 16:13 Infused .Q1H1M STA Infusion Sodium Chloride Confirm 02/05/22 15:58 Sodium Chloride 0.9% 1000 Ml Administered 02/05/22 15:59 Dose 1,000 mls @ ud .ROUTE .STK-MED ONE Ceftriaxone Sodium/Dextrose 1 g in 50 mls @ 100 mls/hr 02/05/22 19:46 02/05/22 20:30 Rocephin 1 Gm-D5w 50 Ml Bag IV 02/05/22 20:15 Infused STAT STA Infusion Ceftriaxone Sodium/Dextrose Confirm 02/05/22 19:51 Rocephin 1 Gm-D5w 50 Ml Bag Administered 02/05/22 19:52 Dose 1 g in 50 mls @ ud IV .STK-MED ONE Insulin Human Regular 0 unit 02/05/22 22:20 Insulin Regular, Human 1 Unit SQ 03/07/22 22:19 UD PRN HYPERGLYCEMIA Lorazepam 1 mg 02/05/22 15:16 02/05/22 16:36 Lorazepam 2 Mg/1 Ml 2 Mg Vial IV 02/05/22 15:17 1 mg STAT ONE Administration Lorazepam Confirm 02/05/22 15:58 Lorazepam 2 Mg/1 Ml 2 Mg Vial Administered 02/05/22 15:59 Dose 2 mg .ROUTE .STK-MED ONE Metoprolol Tartrate 75 mg 02/07/22 10:00 Metoprolol Tartrate 50 Mg Tablet PO 03/09/22 09:59 DAILY OLIVIA Intake & Output (Last 24 hours) 02/04/22 02/05/22 02/06/22 02/07/22 11:59 11:59 11:59 11:59 Intake Total 591 Balance 591 Weight 74.2 kg Microbiology Results (Last 24 hours) 02/05/22 16:48 Urine, Void Urine Culture - Preliminary GRAM NEGATIVE ID AND SENSITIVITY PENDING Laboratory Results (Last 24 hours) 02/06/22 02/06/22 02/05/22 04:35 04:35 23:25 WBC 4.9 RBC 3.83 L Hgb 11.3 L Hct 34.9 L MCV 91.1 MCH 29.5 MCHC 32.4 RDW 14.2 H Plt Count 252 MPV 11.4 H Gran % 51.8 Immature Gran % (Auto) 0.4 Nucleat RBC Rel Count 0.0 Eos # (Auto) 0.27 Immature Gran # (Auto) 0.02 Absolute Lymphs (auto) 1.48 Absolute Monos (auto) 0.50 Absolute Nucleated RBC 0.00 Lymphocytes % 30.0 Monocytes % 10.1 Eosinophils % 5.5 H Basophils % 2.2 Absolute Granulocytes 2.56 Basophils # 0.11 Sodium 138 Potassium 3.5 Chloride 109 H Carbon Dioxide 23 Anion Gap 10.4 BUN 27 H Creatinine 1.26 H Estimated GFR 46.4 Glucose 78 Lactic Acid Calcium 8.3 L Total Bilirubin 0.60 AST 36 ALT 23 Alkaline Phosphatase 64 Troponin I < 0.012 Serum Total Protein 6.8 Albumin 3.9 Thyroxine (T4) TSH 3rd Generation Serum , Qual Urinalys Dipstick Clnc Urine Color Urine Appearance Urine pH Ur Specific [place] POC Urine Protein Conf Urine Ketones Urine Nitrite Urine Bilirubin Urine Urobilinogen Urine Leukocytes Urine WBC (Auto) Urine RBC (Auto) U Hyaline Cast (Auto) U Epithel Cells (Auto) Urine Bacteria (Auto) Urine RBC Unidentified Crystals Urine Mucus (Auto) Ur Culture Indicated? Urine Glucose Salicylates Urine Opiates Level Ur Methadone Acetaminophen Urine Barbiturates Ur Phencyclidine (PCP) Urine Amphetamine U Benzodiazepine Level Urine Cocaine Urine Marijuana (THC) Ethyl Alcohol Influenza Type A Ag Influenza Type B Ag RSV (PCR) SARS-CoV-2 (PCR) 02/05/22 02/05/22 02/05/22 19:15 18:58 17:05 WBC RBC Hgb Hct MCV MCH MCHC RDW Plt Count MPV Gran % Immature Gran % (Auto) Nucleat RBC Rel Count Eos # (Auto) Immature Gran # (Auto) Absolute Lymphs (auto) Absolute Monos (auto) Absolute Nucleated RBC Lymphocytes % Monocytes % Eosinophils % Basophils % Absolute Granulocytes Basophils # Sodium Potassium Chloride Carbon Dioxide Anion Gap BUN Creatinine Estimated GFR Glucose Lactic Acid 1.0 Calcium Total Bilirubin AST ALT Alkaline Phosphatase Troponin I < 0.012 Serum Total Protein Albumin Thyroxine (T4) TSH 3rd Generation Serum , Qual Urinalys Dipstick Clnc Urine Color Urine Appearance Urine pH Ur Specific [place] POC Urine Protein Conf Urine Ketones Urine Nitrite Urine Bilirubin Urine Urobilinogen Urine Leukocytes Urine WBC (Auto) Urine RBC (Auto) U Hyaline Cast (Auto) U Epithel Cells (Auto) Urine Bacteria (Auto) Urine RBC Unidentified Crystals Urine Mucus (Auto) Ur Culture Indicated? Urine Glucose Salicylates Urine Opiates Level Ur Methadone Acetaminophen Urine Barbiturates Ur Phencyclidine (PCP) Urine Amphetamine U Benzodiazepine Level Urine Cocaine Urine Marijuana (THC) Ethyl Alcohol Influenza Type A Ag NEGATIVE Influenza Type B Ag NEGATIVE RSV (PCR) NEGATIVE SARS-CoV-2 (PCR) NEGATIVE 02/05/22 02/05/22 02/05/22 16:48 16:48 16:30 WBC RBC Hgb Hct MCV MCH MCHC RDW Plt Count MPV Gran % Immature Gran % (Auto) Nucleat RBC Rel Count Eos # (Auto) Immature Gran # (Auto) Absolute Lymphs (auto) Absolute Monos (auto) Absolute Nucleated RBC Lymphocytes % Monocytes % Eosinophils % Basophils % Absolute Granulocytes Basophils # Sodium 139 Potassium 3.9 Chloride 107 Carbon Dioxide 23 Anion Gap 13.0 BUN 40 H Creatinine 1.75 H Estimated GFR 31.7 Glucose 97 Lactic Acid Calcium 9.3 Total Bilirubin 0.60 AST 44 H ALT 26 Alkaline Phosphatase 75 Troponin I Serum Total Protein 7.3 Albumin 4.2 Thyroxine (T4) 7.06 TSH 3rd Generation Serum , Qual Urinalys Dipstick Clnc MAIN LAB Urine Color YELLOW Urine Appearance SLIGHTLY CLOUDY Urine pH 5.5 Ur Specific [place] 1.020 POC Urine Protein Conf NEGATIVE Urine Ketones NEGATIVE Urine Nitrite POSITIVE Urine Bilirubin NEGATIVE Urine Urobilinogen 0.2 Urine Leukocytes MODERATE Urine WBC (Auto) >100 Urine RBC (Auto) 11-15 U Hyaline Cast (Auto) 0-2 U Epithel Cells (Auto) RARE Urine Bacteria (Auto) MODERATE Urine RBC TRACE-INTACT Unidentified Crystals 2-5 Urine Mucus (Auto) SLIGHT Ur Culture Indicated? YES Urine Glucose NEGATIVE Salicylates < 1.0 L Urine Opiates Level POSITIVE Ur Methadone NEGATIVE Acetaminophen < 10 L Urine Barbiturates NEGATIVE Ur Phencyclidine (PCP) NEGATIVE Urine Amphetamine POSITIVE U Benzodiazepine Level NEGATIVE Urine Cocaine NEGATIVE Urine Marijuana (THC) NEGATIVE Ethyl Alcohol < 10 Influenza Type A Ag Influenza Type B Ag RSV (PCR) SARS-CoV-2 (PCR) 02/05/22 02/05/22 02/05/22 16:30 16:30 16:30 WBC RBC Hgb Hct MCV MCH MCHC RDW Plt Count MPV Gran % Immature Gran % (Auto) Nucleat RBC Rel Count Eos # (Auto) Immature Gran # (Auto) Absolute Lymphs (auto) Absolute Monos (auto) Absolute Nucleated RBC Lymphocytes % Monocytes % Eosinophils % Basophils % Absolute Granulocytes Basophils # Sodium Potassium Chloride Carbon Dioxide Anion Gap BUN Creatinine Estimated GFR Glucose Lactic Acid Calcium Total Bilirubin AST ALT Alkaline Phosphatase Troponin I < 0.012 Serum Total Protein Albumin Thyroxine (T4) TSH 3rd Generation 1.170 Serum , Qual NEGATIVE Urinalys Dipstick Clnc Urine Color Urine Appearance Urine pH Ur Specific [place] POC Urine Protein Conf Urine Ketones Urine Nitrite Urine Bilirubin Urine Urobilinogen Urine Leukocytes Urine WBC (Auto) Urine RBC (Auto) U Hyaline Cast (Auto) U Epithel Cells (Auto) Urine Bacteria (Auto) Urine RBC Unidentified Crystals Urine Mucus (Auto) Ur Culture Indicated? Urine Glucose Salicylates Urine Opiates Level Ur Methadone Acetaminophen Urine Barbiturates Ur Phencyclidine (PCP) Urine Amphetamine U Benzodiazepine Level Urine Cocaine Urine Marijuana (THC) Ethyl Alcohol Influenza Type A Ag Influenza Type B Ag RSV (PCR) SARS-CoV-2 (PCR) 02/05/22 16:30 WBC 8.7 RBC 3.71 L Hgb 11.0 L Hct 35.3 MCV 95.1 MCH 29.6 MCHC 31.2 L RDW 13.8 Plt Count 249 MPV 11.5 H Gran % 77.3 H Immature Gran % (Auto) 0.3 Nucleat RBC Rel Count 0.0 Eos # (Auto) 0.21 Immature Gran # (Auto) 0.03 Absolute Lymphs (auto) 1.01 Absolute Monos (auto) 0.58 Absolute Nucleated RBC 0.00 Lymphocytes % 11.6 L Monocytes % 6.7 Eosinophils % 2.4 Basophils % 1.7 Absolute Granulocytes 6.73 Basophils # 0.15 Sodium Potassium Chloride Carbon Dioxide Anion Gap BUN Creatinine Estimated GFR Glucose Lactic Acid Calcium Total Bilirubin AST ALT Alkaline Phosphatase Troponin I Serum Total Protein Albumin Thyroxine (T4) TSH 3rd Generation Serum , Qual Urinalys Dipstick Clnc Urine Color Urine Appearance Urine pH Ur Specific [place] POC Urine Protein Conf Urine Ketones Urine Nitrite Urine Bilirubin Urine Urobilinogen Urine Leukocytes Urine WBC (Auto) Urine RBC (Auto) U Hyaline Cast (Auto) U Epithel Cells (Auto) Urine Bacteria (Auto) Urine RBC Unidentified Crystals Urine Mucus (Auto) Ur Culture Indicated? Urine Glucose Salicylates Urine Opiates Level Ur Methadone Acetaminophen Urine Barbiturates Ur Phencyclidine (PCP) Urine Amphetamine U Benzodiazepine Level Urine Cocaine Urine Marijuana (THC) Ethyl Alcohol Influenza Type A Ag Influenza Type B Ag RSV (PCR) SARS-CoV-2 (PCR) Orders (Last 24 hours) Category Date Time Status Bedrest with BRP/BSC ROUTINE Activity 02/05/22 22:20 Active Up With Assistance ROUTINE Activity 02/05/22 22:20 Active CO2 Monitoring CONTINUOUS Care 02/05/22 22:20 Completed Clean Catch Urine Specimen STAT Care 02/05/22 15:13 Completed Code Status Order ROUTINE Care 02/05/22 22:20 Active EKG-ER Only STAT Care 02/05/22 15:13 Completed Fall Protocol Q1H Care 02/05/22 22:20 Active IV Care Q6H Care 02/05/22 22:20 Active Intake and Output Q12H Care 02/05/22 22:20 Active Neuro Checks Q4H Care 02/05/22 22:[address] in Observation ROUTINE Care 02/05/22 22:20 Active Mally Tobin ROUTINE Care 02/05/22 22:20 Active Telemetry q6h Care 02/05/22 22:20 Active Vital Signs Q4H Care 02/05/22 22:20 Active Weight,Daily 0600 Care 02/05/22 22:20 Active Window Shade Installer/Discharge Plan ROUTINE Cons 02/06/22 23:00 Active Heart-Healthy Diet Diet 02/06/22 Breakfast Active Nutritional Admission Screen ONCE Diet 02/06/22 10:00 Active Discharge Routine Discharge 02/06/22 Ordered Discharge/Telephone Order Routine Discharge 02/06/22 Active CERVICAL SPINE WO CONTRAST [CT] Stat Exams 02/05/22 15:12 Completed HEAD WITHOUT CONTRAST [CT] Stat Exams 02/05/22 15:11 Completed LUMBAR SPINE W/O [CT] Stat Exams 02/05/22 15:12 Completed THORACIC SPINE W/O CONTRAST [CT] Stat Exams 02/05/22 15:12 Completed ACETAMINOPHEN Stat Lab 02/05/22 16:30 Completed CBC W DIFF AM.LAB Lab 02/06/22 04:35 Completed CBC W DIFF Stat Lab 02/05/22 16:30 Completed CMP AM.LAB Lab 02/06/22 04:35 Completed CMP Stat Lab 02/05/22 16:30 Completed COVID/FLU/RSV Panel Routine Lab 02/05/22 19:15 Completed CULTURE,URINE Stat Lab 02/05/22 16:48 Results ETHYL ALCOHOL Stat Lab 02/05/22 16:30 Completed HCG QUALITATIVE,SERUM Stat Lab 02/05/22 16:30 Completed Lactic Acid Stat Lab 02/05/22 17:05 Completed SALICYLATE Stat Lab 02/05/22 16:30 Completed T4 (Thyroxine) Stat Lab 02/05/22 16:30 Completed TROPONIN Q4H Lab 02/05/22 16:30 Completed TROPONIN Q4H Lab 02/05/22 18:58 Completed TROPONIN Q4H Lab 02/05/22 23:25 Completed TSH [TSH, 3RD Generation] Stat Lab 02/05/22 16:30 Completed UA W/RFX CULTURE Stat Lab 02/05/22 16:48 Completed Urine Triage Profile Stat Lab 02/05/22 16:48 Completed Acetaminophen 325 mg [Tylenol 325 mg] Med 02/05/22 22:20 Active 650 mg PO Q4H PRN PRN Albuterol/Ipratropium 3ml Neb* [DUONEB 0.5-3 MG/3 ml Med 02/05/22 22:20 Discontinued Neb] 3 ml IH Q4HPRN PRN Amlodipine Besylate 5 mg [Norvasc 5 mg] Med 02/06/22 15:00 Active 5 mg PO DAILY Ceftriaxone 1 GM/50 ML PREMIX* [ROCEPHIN 1 Gm-D5w 50 ml Med 02/06/22 22:00 Active Bag] 1 g in 50 ml IV Q24H22 Ceftriaxone 1 GM/50 ML PREMIX* [ROCEPHIN 1 Gm-D5w 50 ml Med 02/05/22 19:46 Discontinued Bag] 1 g in 50 ml IV STAT Ceftriaxone 1 GM/50 ML PREMIX* [ROCEPHIN 1 Gm-D5w 50 ml Med 02/05/22 19:51 Discontinued Bag] 1 g in 50 ml IV UD Divalproex Sodium ER 250 mg [Depakote EXTENDED Med 02/06/22 15:00 Active RELEASE 250 MG] 500 mg PO BID Famotidine 20 mg Vial [Pepcid 20 MG VIAL] Med 02/05/22 22:20 Active 20 mg IV Q12HT Insulin Regular, Human [Humulin R] Med 02/05/22 22:20 Discontinued See Dose Instructions SQ UD PRN Levothyroxine Sodium 100 Mcg [Synthroid 100 Mcg] Med 02/06/22 22:00 Active 200 mcg PO QHS Lorazepam 1 mg [Ativan 1 MG] Med 02/05/22 22:20 Active 1 mg PO QID PRN PRN Lorazepam 2 mg/1 ml [Ativan 2 MG/1 ML VIAL] Med 02/05/22 15:16 Discontinued 1 mg IV STAT ONE Lorazepam 2 mg/1 ml [Ativan 2 MG/1 ML VIAL] Med 02/05/22 15:58 Discontinued 2 mg .ROUTE .STK-MED ONE Metoprolol Tartrate 25 mg [Lopressor 25MG Tab] Med 02/06/22 15:00 Active 25 mg PO DAILY Metoprolol Tartrate 50 mg [Lopressor 50 MG] Med 02/06/22 15:00 Active 50 mg PO DAILY Metoprolol Tartrate 50 mg [Lopressor 50 MG] Med 02/07/22 10:00 Discontinued 75 mg PO DAILY Mirabegron [Myrbetriq] Med 02/06/22 15:00 Active 50 mg PO DAILY NaCl 0.9% 1000 ml [Sodium Chloride 0.9% 1000 ML] 1,000 Med 02/05/22 15:58 Discontinued ml .ROUTE UD NaCl 0.9% 1000 ml [Sodium Chloride 0.9% 1000 ML] 1,000 Med 02/05/22 22:20 Active ml IV 100 mls/hr NaCl 0.9% 1000 ml [Sodium Chloride 0.9% 1000 ML] 1,000 Med 02/05/22 15:13 Discontinued ml IV 999 mls/hr Ondansetron HCl 4 mg/2 ml [Zofran 4 MG/2 ML VIAL] Med 02/05/22 22:20 Active 4 mg IV Q6H PRN PRN Sertraline HCl 50 mg [Zoloft 50 mg Tablet] Med 02/06/22 15:00 Active 25 mg PO DAILY Simvastatin 20Mg [Zocor 20Mg] Med 02/06/22 15:00 Active 20 mg PO DAILY Pulse Oximetry CONTINUOUS RT 02/05/22 22:20 Active Respiratory Therapy Consult ROUTINE RT 02/05/22 22:20 Completed Smoking Cessation Education ONCE RT 02/05/22 23:30 Completed Patient Care Notes (Last 24 hours) 02/06/22 10:30 Nursing Note by Lizabeth Fisher 02-06-22 UPDATED HISTORY AND PHYSICAL, MED LIST AND LABS FAXED TO DR BURTON [facility]ICE [id number] Initialized on 02/06/22 10:30 - END OF NOTE 02/06/22 10:00 (created 02/06/22 10:29) Case Management Note by Erica Tanner DR GIVEN UPDATE ON PATIENT. DR TAMEZ REPORTS THAT HE WILL BE HERE AROUND NOON TODAY TO ROUND. Initialized on 02/06/22 10:29 - END OF NOTE Code(s): N39.0 - URINARY TRACT INFECTION, SITE NOT SPECIFIED (2) Amphetamine abuse, continuous Current Visit: Yes Status: Acute Code(s): F15.10 - OTHER STIMULANT ABUSE, UNCOMPLICATED (3) Opiate abuse, continuous Current Visit: Yes Status: Acute Code(s): F11.10 - OPIOID ABUSE, UNCO MPLICATED (4) Concussion Current Visit: Yes Status: Acute Code(s): S06.0XAA - Hospital Summary - Hospital Course Hospital Course: Chief Complaint Diagnosis ALtered mental status/Concussion/Meth and opiate effects/UTI/Renal insuf Allergies Allergy/AdvReac Type Severity Reaction Status Date / Time No Known Drug Allergies Allergy Verified 02/05/22 22:25 Vital Signs (Last 24 hours) Temp Pulse Resp BP Pulse Ox 02/06/22 11:52 97.9 F 92 H 16 182/82 94 L 02/06/22 08:15 96 02/06/22 07:33 97.9 F 82 14 170/76 96 02/06/22 04:00 97.6 F 93 H 15 149/76 95 02/05/22 23:30 91 H 18 94 L 02/05/22 23:00 94 L 02/05/22 22:41 95.5 F 97 H 22 168/89 94 L 02/05/22 21:30 97 Home Medications Medication Instructions Recorded Confirmed Last Taken Type Amlodipine Besylate 5 mg 5 mg PO DAILY 02/05/22 02/05/22 Unknown History [Norvasc 5 mg] Divalproex Sodium [Divalproex 500 mg PO BID 02/05/22 02/05/22 Unknown History Sodium ER] Mirabegron [Myrbetriq] 50 mg PO DAILY 02/05/22 02/05/22 Unknown History Sertraline HCl [Zoloft] 25 mg PO DAILY 02/05/22 02/05/22 Unknown History Cephalexin Mh 500 mg [Keflex 500 500 mg PO QID #28 cap 02/06/22 Unknown Rx mg] Current Medications Generic Name Dose Route Start Last Admin Trade Name Freq PRN Reason Stop Dose Admin Acetaminophen 650 mg 02/05/22 22:20 Acetaminophen 325 Mg Tablet PO 03/07/22 22:19 Q4H PRN PRN PAIN AND/OR FEVER Amlodipine Besylate 5 mg 02/06/22 15:00 Amlodipine Besylate 5 Mg Tablet PO 03/08/22 14:59 DAILY OLIVIA Divalproex Sodium 500 mg 02/06/22 15:00 Divalproex Sodium 250 Mg Tab Extended Release PO 03/08/22 14:59 BID OLIVIA Famotidine 20 mg 02/05/22 22:20 02/06/22 06:15 Famotidine 20 Mg/1 Vial IV 03/07/22 22:19 Not Given Q12HT OLIVIA Sodium Chloride 1,000 mls @ 100 mls/hr 02/05/22 22:20 02/06/22 09:52 Sodium Chloride 0.9% 1000 Ml IV 03/07/22 22:19 100 mls/hr .Q10H OLIVIA Administration Ceftriaxone Sodium/Dextrose 1 g in 50 mls @ 100 mls/hr 02/06/22 22:00 Rocephin 1 Gm-D5w 50 Ml Bag IV 02/09/22 21:59 Q24H22 OLIVIA Levothyroxine Sodium 200 mcg 02/06/22 22:00 Levothyroxine Sodium 100 Mcg Tablet PO 03/08/22 21:59 QHS OLIVIA Lorazepam 1 mg 02/05/22 22:20 02/05/22 22:51 Lorazepam 1 Mg Tablet PO 03/07/22 22:19 1 mg QID PRN PRN Administration ANXIETY Metoprolol Tartrate 50 mg 02/06/22 15:00 Metoprolol Tartrate 50 Mg Tablet PO 03/08/22 14:59 DAILY OLIVIA Metoprolol Tartrate 25 mg 02/06/22 15:00 Metoprolol Tartrate 25 Mg Tab PO 03/08/22 14:59 DAILY OLIVIA Mirabegron 50 mg 02/06/22 15:00 Mirabegron 25 Mg Tab.Er.24h PO 03/08/22 14:59 DAILY OLIVIA Ondansetron HCl 4 mg 02/05/22 22:20 Ondansetron Hcl 4 Mg/2 Ml Vial IV 03/07/22 22:19 Q6H PRN PRN NAUSEA/VOMITING Sertraline HCl 25 mg 02/06/22 15:00 Sertraline Hcl 50 Mg Tab PO 03/08/22 14:59 DAILY OLIVIA Simvastatin 20 mg 02/06/22 15:00 Simvastatin 20 Mg Tablet PO 03/08/22 14:59 DAILY OLIVIA Discontinued Medications Generic Name Dose Route Start Last Admin Trade Name Freq PRN Reason Stop Dose Admin Albuterol/Ipratropium 3 ml 02/05/22 22:20 Ipratropium/Albuterol Sulfate 3 Ml Ampul.Neb IH 03/07/22 22:19 Q4HPRN PRN SHORTNESS OF BREATH/WHEEZING Sodium Chloride 1,000 mls @ 999 mls/hr 02/05/22 15:13 02/05/22 17:42 Sodium Chloride 0.9% 1000 Ml IV 02/05/22 16:13 Infused .Q1H1M STA Infusion Sodium Chloride Confirm 02/05/22 15:58 Sodium Chloride 0.9% 1000 Ml Administered 02/05/22 15:59 Dose 1,000 mls @ ud .ROUTE .STK-MED ONE Ceftriaxone Sodium/Dextrose 1 g in 50 mls @ 100 mls/hr 02/05/22 19:46 02/05/22 20:30 Rocephin 1 Gm-D5w 50 Ml Bag IV 02/05/22 20:15 Infused STAT STA Infusion Ceftriaxone Sodium/Dextrose Confirm 02/05/22 19:51 Rocephin 1 Gm-D5w 50 Ml Bag Administered 02/05/22 19:52 Dose 1 g in 50 mls @ ud IV .STK-MED ONE Insulin Human Regular 0 unit 02/05/22 22:20 Insulin Regular, Human 1 Unit SQ 03/07/22 22:19 UD PRN HYPERGLYCEMIA Lorazepam 1 mg 02/05/22 15:16 02/05/22 16:36 Lorazepam 2 Mg/1 Ml 2 Mg Vial IV 02/05/22 15:17 1 mg STAT ONE Administration Lorazepam Confirm 02/05/22 15:58 Lorazepam 2 Mg/1 Ml 2 Mg Vial Administered 02/05/22 15:59 Dose 2 mg .ROUTE .STK-MED ONE Metoprolol Tartrate 75 mg 02/07/22 10:00 Metoprolol Tartrate 50 Mg Tablet PO 03/09/22 09:59 DAILY OLIVIA Intake & Output (Last 24 hours) 02/04/22 02/05/22 02/06/22 02/07/22 11:59 11:59 11:59 11:59 Intake Total 591 Balance 591 Weight 74.2 kg Microbiology Results (Last 24 hours) 02/05/22 16:48 Urine, Void Urine Culture - Preliminary GRAM NEGATIVE ID AND SENSITIVITY PENDING Laboratory Results (Last 24 hours) 02/06/22 02/06/22 02/05/22 04:35 04:35 23:25 WBC 4.9 RBC 3.83 L Hgb 11.3 L Hct 34.9 L MCV 91.1 MCH 29.5 MCHC 32.4 RDW 14.2 H Plt Count 252 MPV 11.4 H Gran % 51.8 Immature Gran % (Auto) 0.4 Nucleat RBC Rel Count 0.0 Eos # (Auto) 0.27 Immature Gran # (Auto) 0.02 Absolute Lymphs (auto) 1.48 Absolute Monos (auto) 0.50 Absolute Nucleated RBC 0.00 Lymphocytes % 30.0 Monocytes % 10.1 Eosinophils % 5.5 H Basophils % 2.2 Absolute Granulocytes 2.56 Basophils # 0.11 Sodium 138 Potassium 3.5 Chloride 109 H Carbon Dioxide 23 Anion Gap 10.4 BUN 27 H Creatinine 1.26 H Estimated GFR 46.4 Glucose 78 Lactic Acid Calcium 8.3 L Total Bilirubin 0.60 AST 36 ALT 23 Alkaline Phosphatase 64 Troponin I < 0.012 Serum Total Protein 6.8 Albumin 3.9 Thyroxine (T4) TSH 3rd Generation Serum , Qual Urinalys Dipstick Clnc Urine Color Urine Appearance Urine pH Ur Specific [place] POC Urine Protein Conf Urine Ketones Urine Nitrite Urine Bilirubin Urine Urobilinogen Urine Leukocytes Urine WBC (Auto) Urine RBC (Auto) U Hyaline Cast (Auto) U Epithel Cells (Auto) Urine Bacteria (Auto) Urine RBC Unidentified Crystals Urine Mucus (Auto) Ur Culture Indicated? Urine Glucose Salicylates Urine Opiates Level Ur Methadone Acetaminophen Urine Barbiturates Ur Phencyclidine (PCP) Urine Amphetamine U Benzodiazepine Level Urine Cocaine Urine Marijuana (THC) Ethyl Alcohol Influenza Type A Ag Influenza Type B Ag RSV (PCR) SARS-CoV-2 (PCR) 02/05/22 02/05/22 02/05/22 19:15 18:58 17:05 WBC RBC Hgb Hct MCV MCH MCHC RDW Plt Count MPV Gran % Immature Gran % (Auto) Nucleat RBC Rel Count Eos # (Auto) Immature Gran # (Auto) Absolute Lymphs (auto) Absolute Monos (auto) Absolute Nucleated RBC Lymphocytes % Monocytes % Eosinophils % Basophils % Absolute Granulocytes Basophils # Sodium Potassium Chloride Carbon Dioxide Anion Gap BUN Creatinine Estimated GFR Glucose Lactic Acid 1.0 Calcium Total Bilirubin AST ALT Alkaline Phosphatase Troponin I < 0.012 Serum Total Protein Albumin Thyroxine (T4) TSH 3rd Generation Serum , Qual Urinalys Dipstick Clnc Urine Color Urine Appearance Urine pH Ur Specific [place] POC Urine Protein Conf Urine Ketones Urine Nitrite Urine Bilirubin Urine Urobilinogen Urine Leukocytes Urine WBC (Auto) Urine RBC (Auto) U Hyaline Cast (Auto) U Epithel Cells (Auto) Urine Bacteria (Auto) Urine RBC Unidentified Crystals Urine Mucus (Auto) Ur Culture Indicated? Urine Glucose Salicylates Urine Opiates Level Ur Methadone Acetaminophen Urine Barbiturates Ur Phencyclidine (PCP) Urine Amphetamine U Benzodiazepine Level Urine Cocaine Urine Marijuana (THC) Ethyl Alcohol Influenza Type A Ag NEGATIVE Influenza Type B Ag NEGATIVE RSV (PCR) NEGATIVE SARS-CoV-2 (PCR) NEGATIVE 02/05/22 02/05/22 02/05/22 16:48 16:48 16:30 WBC RBC Hgb Hct MCV MCH MCHC RDW Plt Count MPV Gran % Immature Gran % (Auto) Nucleat RBC Rel Count Eos # (Auto) Immature Gran # (Auto) Absolute Lymphs (auto) Absolute Monos (auto) Absolute Nucleated RBC Lymphocytes % Monocytes % Eosinophils % Basophils % Absolute Granulocytes Basophils # Sodium 139 Potassium 3.9 Chloride 107 Carbon Dioxide 23 Anion Gap 13.0 BUN 40 H Creatinine 1.75 H Estimated GFR 31.7 Glucose 97 Lactic Acid Calcium 9.3 Total Bilirubin 0.60 AST 44 H ALT 26 Alkaline Phosphatase 75 Troponin I Serum Total Protein 7.3 Albumin 4.2 Thyroxine (T4) 7.06 TSH 3rd Generation Serum , Qual Urinalys Dipstick Clnc MAIN LAB Urine Color YELLOW Urine Appearance SLIGHTLY CLOUDY Urine pH 5.5 Ur Specific [place] 1.020 POC Urine Protein Conf NEGATIVE Urine Ketones NEGATIVE Urine Nitrite POSITIVE Urine Bilirubin NEGATIVE Urine Urobilinogen 0.2 Urine Leukocytes MODERATE Urine WBC (Auto) >100 Urine RBC (Auto) 11-15 U Hyaline Cast (Auto) 0-2 U Epithel Cells (Auto) RARE Urine Bacteria (Auto) MODERATE Urine RBC TRACE-INTACT Unidentified Crystals 2-5 Urine Mucus (Auto) SLIGHT Ur Culture Indicated? YES Urine Glucose NEGATIVE Salicylates < 1.0 L Urine Opiates Level POSITIVE Ur Methadone NEGATIVE Acetaminophen < 10 L Urine Barbiturates NEGATIVE Ur Phencyclidine (PCP) NEGATIVE Urine Amphetamine POSITIVE U Benzodiazepine Level NEGATIVE Urine Cocaine NEGATIVE Urine Marijuana (THC) NEGATIVE Ethyl Alcohol < 10 Influenza Type A Ag Influenza Type B Ag RSV (PCR) SARS-CoV-2 (PCR) 02/05/22 02/05/22 02/05/22 16:30 16:30 16:30 WBC RBC Hgb Hct MCV MCH MCHC RDW Plt Count MPV Gran % Immature Gran % (Auto) Nucleat RBC Rel Count Eos # (Auto) Immature Gran # (Auto) Absolute Lymphs (auto) Absolute Monos (auto) Absolute Nucleated RBC Lymphocytes % Monocytes % Eosinophils % Basophils % Absolute Granulocytes Basophils # Sodium Potassium Chloride Carbon Dioxide Anion Gap BUN Creatinine Estimated GFR Glucose Lactic Acid Calcium Total Bilirubin AST ALT Alkaline Phosphatase Troponin I < 0.012 Serum Total Protein Albumin Thyroxine (T4) TSH 3rd Generation 1.170 Serum , Qual NEGATIVE Urinalys Dipstick Clnc Urine Color Urine Appearance Urine pH Ur Specific [place] POC Urine Protein Conf Urine Ketones Urine Nitrite Urine Bilirubin Urine Urobilinogen Urine Leukocytes Urine WBC (Auto) Urine RBC (Auto) U Hyaline Cast (Auto) U Epithel Cells (Auto) Urine Bacteria (Auto) Urine RBC Unidentified Crystals Urine Mucus (Auto) Ur Culture Indicated? Urine Glucose Salicylates Urine Opiates Level Ur Methadone Acetaminophen Urine Barbiturates Ur Phencyclidine (PCP) Urine Amphetamine U Benzodiazepine Level Urine Cocaine Urine Marijuana (THC) Ethyl Alcohol Influenza Type A Ag Influenza Type B Ag RSV (PCR) SARS-CoV-2 (PCR) 02/05/22 16:30 WBC 8.7 RBC 3.71 L Hgb 11.0 L Hct 35.3 MCV 95.1 MCH 29.6 MCHC 31.2 L RDW 13.8 Plt Count 249 MPV 11.5 H Gran % 77.3 H Immature Gran % (Auto) 0.3 Nucleat RBC Rel Count 0.0 Eos # (Auto) 0.21 Immature Gran # (Auto) 0.03 Absolute Lymphs (auto) 1.01 Absolute Monos (auto) 0.58 Absolute Nucleated RBC 0.00 Lymphocytes % 11.6 L Monocytes % 6.7 Eosinophils % 2.4 Basophils % 1.7 Absolute Granulocytes 6.73 Basophils # 0.15 Sodium Potassium Chloride Carbon Dioxide Anion Gap BUN Creatinine Estimated GFR Glucose Lactic Acid Calcium Total Bilirubin AST ALT Alkaline Phosphatase Troponin I Serum Total Protein Albumin Thyroxine (T4) TSH 3rd Generation Serum , Qual Urinalys Dipstick Clnc Urine Color Urine Appearance Urine pH Ur Specific [place] POC Urine Protein Conf Urine Ketones Urine Nitrite Urine Bilirubin Urine Urobilinogen Urine Leukocytes Urine WBC (Auto) Urine RBC (Auto) U Hyaline Cast (Auto) U Epithel Cells (Auto) Urine Bacteria (Auto) Urine RBC Unidentified Crystals Urine Mucus (Auto) Ur Culture Indicated? Urine Glucose Salicylates Urine Opiates Level Ur Methadone Acetaminophen Urine Barbiturates Ur Phencyclidine (PCP) Urine Amphetamine U Benzodiazepine Level Urine Cocaine Urine Marijuana (THC) Ethyl Alcohol Influenza Type A Ag Influenza Type B Ag RSV (PCR) SARS-CoV-2 (PCR) Orders (Last 24 hours) Category Date Time Status Bedrest with BRP/BSC ROUTINE Activity 02/05/22 22:20 Active Up With Assistance ROUTINE Activity 02/05/22 22:20 Active CO2 Monitoring CONTINUOUS Care 02/05/22 22:20 Completed Clean Catch Urine Specimen STAT Care 02/05/22 15:13 Completed Code Status Order ROUTINE Care 02/05/22 22:20 Active EKG-ER Only STAT Care 02/05/22 15:13 Completed Fall Protocol Q1H Care 02/05/22 22:20 Active IV Care Q6H Care 02/05/22 22:20 Active Intake and Output Q12H Care 02/05/22 22:20 Active Neuro Checks Q4H Care 02/05/22 22:[address] in Observation ROUTINE Care 02/05/22 22:20 Active Mally Tobin ROUTINE Care 02/05/22 22:20 Active Telemetry q6h Care 02/05/22 22:20 Active Vital Signs Q4H Care 02/05/22 22:20 Active Weight,Daily 0600 Care 02/05/22 22:20 Active Window Shade Installer/Discharge Plan ROUTINE Cons 02/06/22 23:00 Active Heart-Healthy Diet Diet 02/06/22 Breakfast Active Nutritional Admission Screen ONCE Diet 02/06/22 10:00 Active Discharge Routine Discharge 02/06/22 Ordered Discharge/Telephone Order Routine Discharge 02/06/22 Active CERVICAL SPINE WO CONTRAST [CT] Stat Exams 02/05/22 15:12 Completed HEAD WITHOUT CONTRAST [CT] Stat Exams 02/05/22 15:11 Completed LUMBAR SPINE W/O [CT] Stat Exams 02/05/22 15:12 Completed THORACIC SPINE W/O CONTRAST [CT] Stat Exams 02/05/22 15:12 Completed ACETAMINOPHEN Stat Lab 02/05/22 16:30 Completed CBC W DIFF AM.LAB Lab 02/06/22 04:35 Completed CBC W DIFF Stat Lab 02/05/22 16:30 Completed CMP AM.LAB Lab 02/06/22 04:35 Completed CMP Stat Lab 02/05/22 16:30 Completed COVID/FLU/RSV Panel Routine Lab 02/05/22 19:15 Completed CULTURE,URINE Stat Lab 02/05/22 16:48 Results ETHYL ALCOHOL Stat Lab 02/05/22 16:30 Completed HCG QUALITATIVE,SERUM Stat Lab 02/05/22 16:30 Completed Lactic Acid Stat Lab 02/05/22 17:05 Completed SALICYLATE Stat Lab 02/05/22 16:30 Completed T4 (Thyroxine) Stat Lab 02/05/22 16:30 Completed TROPONIN Q4H Lab 02/05/22 16:30 Completed TROPONIN Q4H Lab 02/05/22 18:58 Completed TROPONIN Q4H Lab 02/05/22 23:25 Completed TSH [TSH, 3RD Generation] Stat Lab 02/05/22 16:30 Completed UA W/RFX CULTURE Stat Lab 02/05/22 16:48 Completed Urine Triage Profile Stat Lab 02/05/22 16:48 Completed Acetaminophen 325 mg [Tylenol 325 mg] Med 02/05/22 22:20 Active 650 mg PO Q4H PRN PRN Albuterol/Ipratropium 3ml Neb* [DUONEB 0.5-3 MG/3 ml Med 02/05/22 22:20 Discontinued Neb] 3 ml IH Q4HPRN PRN Amlodipine Besylate 5 mg [Norvasc 5 mg] Med 02/06/22 15:00 Active 5 mg PO DAILY Ceftriaxone 1 GM/50 ML PREMIX* [ROCEPHIN 1 Gm-D5w 50 ml Med 02/06/22 22:00 Active Bag] 1 g in 50 ml IV Q24H22 Ceftriaxone 1 GM/50 ML PREMIX* [ROCEPHIN 1 Gm-D5w 50 ml Med 02/05/22 19:46 Discontinued Bag] 1 g in 50 ml IV STAT Ceftriaxone 1 GM/50 ML PREMIX* [ROCEPHIN 1 Gm-D5w 50 ml Med 02/05/22 19:51 Discontinued Bag] 1 g in 50 ml IV UD Divalproex Sodium ER 250 mg [Depakote EXTENDED Med 02/06/22 15:00 Active RELEASE 250 MG] 500 mg PO BID Famotidine 20 mg Vial [Pepcid 20 MG VIAL] Med 02/05/22 22:20 Active 20 mg IV Q12HT Insulin Regular, Human [Humulin R] Med 02/05/22 22:20 Discontinued See Dose Instructions SQ UD PRN Levothyroxine Sodium 100 Mcg [Synthroid 100 Mcg] Med 02/06/22 22:00 Active 200 mcg PO QHS Lorazepam 1 mg [Ativan 1 MG] Med 02/05/22 22:20 Active 1 mg PO QID PRN PRN Lorazepam 2 mg/1 ml [Ativan 2 MG/1 ML VIAL] Med 02/05/22 15:16 Discontinued 1 mg IV STAT ONE Lorazepam 2 mg/1 ml [Ativan 2 MG/1 ML VIAL] Med 02/05/22 15:58 Discontinued 2 mg .ROUTE .STK-MED ONE Metoprolol Tartrate 25 mg [Lopressor 25MG Tab] Med 02/06/22 15:00 Active 25 mg PO DAILY Metoprolol Tartrate 50 mg [Lopressor 50 MG] Med 02/06/22 15:00 Active 50 mg PO DAILY Metoprolol Tartrate 50 mg [Lopressor 50 MG] Med 02/07/22 10:00 Discontinued 75 mg PO DAILY Mirabegron [Myrbetriq] Med 02/06/22 15:00 Active 50 mg PO DAILY NaCl 0.9% 1000 ml [Sodium Chloride 0.9% 1000 ML] 1,000 Med 02/05/22 15:58 Discontinued ml .ROUTE UD NaCl 0.9% 1000 ml [Sodium Chloride 0.9% 1000 ML] 1,000 Med 02/05/22 22:20 Active ml IV 100 mls/hr NaCl 0.9% 1000 ml [Sodium Chloride 0.9% 1000 ML] 1,000 Med 02/05/22 15:13 Discontinued ml IV 999 mls/hr Ondansetron HCl 4 mg/2 ml [Zofran 4 MG/2 ML VIAL] Med 02/05/22 22:20 Active 4 mg IV Q6H PRN PRN Sertraline HCl 50 mg [Zoloft 50 mg Tablet] Med 02/06/22 15:00 Active 25 mg PO DAILY Simvastatin 20Mg [Zocor 20Mg] Med 02/06/22 15:00 Active 20 mg PO DAILY Pulse Oximetry CONTINUOUS RT 02/05/22 22:20 Active Respiratory Therapy Consult ROUTINE RT 02/05/22 22:20 Completed Smoking Cessation Education ONCE RT 02/05/22 23:30 Completed Patient Care Notes (Last 24 hours) 02/06/22 10:30 Nursing Note by Lizabeth Fisher 02-06-22 UPDATED HISTORY AND PHYSICAL, MED LIST AND LABS FAXED TO DR BURTON OFFICE [phone] [id number] Initialized on 02/06/22 10:30 - END OF NOTE 02/06/22 10:00 (created 02/06/22 10:29) Case Management Note by Erica Tanner DR GIVEN UPDATE ON PATIENT. DR TAMEZ REPORTS THAT HE WILL BE HERE AROUND NOON TODAY TO ROUND. Initialized on 02/06/22 10:29 - END OF NOTE - Vitals & Intake/Output Vital Signs: Vital Signs Temperature 97.9 F 02/06/22 11:52 Pulse Rate 92 H 02/06/22 11:52 Respiratory Rate 16 02/06/22 11:52 Blood Pressure 182/82 02/06/22 11:52 O2 Sat by Pulse Oximetry 94 L 02/06/22 11:52 Intake & Output: Intake & Output 02/04/22 02/05/22 02/06/22 02/07/22 11:59 11:59 11:59 11:59 Intake Total 591 Balance 591 Weight 74.2 kg - Lab Result Diagrams: 02/06/22 04:35 02/06/22 04:35 Lab Results-Last 24 Hrs: Lab Results-Last 24 Hours 02/05/22 02/05/22 02/05/22 Range/Units 16:30 16:30 16:30 WBC 8.7 (4.0-10.5) x10^3/uL RBC 3.71 L (4.1-5.4) x10^6/uL Hgb 11.0 L (12.0-16.0) g/dL Hct 35.3 (35-47) % MCV 95.1 (78-100) fL MCH 29.6 (26-32) pg MCHC 31.2 L (32-36) g/dL RDW 13.8 (11.5-14.0) % Plt Count 249 (150-450) x10^3/uL MPV 11.5 H (7.5-11.0) fL Gran % 77.3 H (36.0-66.0) % Immature Gran % (Auto) 0.3 (0.00-0.4) % Nucleat RBC Rel Count 0.0 (0.00-0.1) % Eos # (Auto) 0.21 (0-0.5) x10^3/uL Immature Gran # (Auto) 0.03 (0.00-0.03) x10^3u/L Absolute Lymphs (auto) 1.01 (1.0-4.6) x10^3/uL Absolute Monos (auto) 0.58 (0.0-1.3) x10^3/uL Absolute Nucleated RBC 0.00 (0.00-0.01) x10^3u/L Lymphocytes % 11.6 L (24.0-44.0) % Monocytes % 6.7 (0.0-12.0) % Eosinophils % 2.4 (0.00-5.0) % Basophils % 1.7 (0.0-0.4) % Absolute Granulocytes 6.73 (1.4-6.9) x10^3/uL Basophils # 0.15 (0-0.4) x10^3/uL Sodium (137-145) mmol/L Potassium (3.5-5.1) mmol/L Chloride (98-107) mmol/L Carbon Dioxide (22-30) mmol/L Anion Gap (5-15) MEQ/L BUN (7-17) mg/dL Creatinine (0.52-1.04) mg/dL Estimated GFR ML/MIN Glucose (74-106) mg/dL Lactic Acid (0.4-2.0) Calcium (8.4-10.2) mg/dL Total Bilirubin (0.2-1.3) mg/dL AST (14-36) U/L ALT (0-35) U/L Alkaline Phosphatase (38-126) U/L Troponin I < 0.012 (0.000-0.034) ng/mL Serum Total Protein (6.3-8.2) g/dL Albumin (3.5-5.0) g/dL Thyroxine (T4) (5.53-10.96) ug/dL TSH 3rd Generation (0.47-4.68) mIU/L Serum , Qual NEGATIVE (Negative) Urinalys Dipstick Clnc Urine Color (YELLOW) Urine Appearance (CLEAR) Urine pH (5-6) Ur Specific [place] (1.005-1.025) POC Urine Protein Conf (Negative) Urine Ketones (NEGATIVE) Urine Nitrite (NEGATIVE) Urine Bilirubin (NEGATIVE) Urine Urobilinogen (0-1) mg/dL Urine Leukocytes (NEGATIVE) Urine WBC (Auto) (0-5) /HPF Urine RBC (Auto) (0-2) /HPF U Hyaline Cast (Auto) (0-2) /LPF U Epithel Cells (Auto) (FEW) /HPF Urine Bacteria (Auto) (NEGATIVE) /HPF Urine RBC (0-5) Buster/ul Unidentified Crystals (NEGATIVE) /HPF Urine Mucus (Auto) (NEGATIVE) /HPF Ur Culture Indicated? Urine Glucose (NEGATIVE) mg/dL Salicylates (2-20) mg/dL Urine Opiates Level (NEGATIVE) Ur Methadone (NEGATIVE) Acetaminophen (10-30) ug/ml Urine Barbiturates (NEGATIVE) Ur Phencyclidine (PCP) (NEGATIVE) Urine Amphetamine (NEGATIVE) U Benzodiazepine Level (NEGATIVE) Urine Cocaine (NEGATIVE) Urine Marijuana (THC) (NEGATIVE) Ethyl Alcohol (0-10) mg/dL Influenza Type A Ag (NEGATIVE) Influenza Type B Ag (NEGATIVE) RSV (PCR) (Negative) SARS-CoV-2 (PCR) (NEGATIVE) 02/05/22 02/05/22 02/05/22 Range/Units 16:30 16:30 16:48 WBC (4.0-10.5) x10^3/uL RBC (4.1-5.4) x10^6/uL Hgb (12.0-16.0) g/dL Hct (35-47) % MCV (78-100) fL MCH (26-32) pg MCHC (32-36) g/dL RDW (11.5-14.0) % Plt Count (150-450) x10^3/uL MPV (7.5-11.0) fL Gran % (36.0-66.0) % Immature Gran % (Auto) (0.00-0.4) % Nucleat RBC Rel Count (0.00-0.1) % Eos # (Auto) (0-0.5) x10^3/uL Immature Gran # (Auto) (0.00-0.03) x10^3u/L Absolute Lymphs (auto) (1.0-4.6) x10^3/uL Absolute Monos (auto) (0.0-1.3) x10^3/uL Absolute Nucleated RBC (0.00-0.01) x10^3u/L Lymphocytes % (24.0-44.0) % Monocytes % (0.0-12.0) % Eosinophils % (0.00-5.0) % Basophils % (0.0-0.4) % Absolute Granulocytes (1.4-6.9) x10^3/uL Basophils # (0-0.4) x10^3/uL Sodium 139 (137-145) mmol/L Potassium 3.9 (3.5-5.1) mmol/L Chloride 107 (98-107) mmol/L Carbon Dioxide 23 (22-30) mmol/L Anion Gap 13.0 (5-15) MEQ/L BUN 40 H (7-17) mg/dL Creatinine 1.75 H (0.52-1.04) mg/dL Estimated GFR 31.7 ML/MIN Glucose 97 (74-106) mg/dL Lactic Acid (0.4-2.0) Calcium 9.3 (8.4-10.2) mg/dL Total Bilirubin 0.60 (0.2-1.3) mg/dL AST 44 H (14-36) U/L ALT 26 (0-35) U/L Alkaline Phosphatase 75 (38-126) U/L Troponin I (0.000-0.034) ng/mL Serum Total Protein 7.3 (6.3-8.2) g/dL Albumin 4.2 (3.5-5.0) g/dL Thyroxine (T4) 7.06 (5.53-10.96) ug/dL TSH 3rd Generation 1.170 (0.47-4.68) mIU/L Serum , Qual (Negative) Urinalys Dipstick Clnc Urine Color (YELLOW) Urine Appearance (CLEAR) Urine pH (5-6) Ur Specific [place] (1.005-1.025) POC Urine Protein Conf (Negative) Urine Ketones (NEGATIVE) Urine Nitrite (NEGATIVE) Urine Bilirubin (NEGATIVE) Urine Urobilinogen (0-1) mg/dL Urine Leukocytes (NEGATIVE) Urine WBC (Auto) (0-5) /HPF Urine RBC (Auto) (0-2) /HPF U Hyaline Cast (Auto) (0-2) /LPF U Epithel Cells (Auto) (FEW) /HPF Urine Bacteria (Auto) (NEGATIVE) /HPF Urine RBC (0-5) Buster/ul Unidentified Crystals (NEGATIVE) /HPF Urine Mucus (Auto) (NEGATIVE) /HPF Ur Culture Indicated? Urine Glucose (NEGATIVE) mg/dL Salicylates < 1.0 L (2-20) mg/dL Urine Opiates Level POSITIVE (NEGATIVE) Ur Methadone NEGATIVE (NEGATIVE) Acetaminophen < 10 L (10-30) ug/ml Urine Barbiturates NEGATIVE (NEGATIVE) Ur Phencyclidine (PCP) NEGATIVE (NEGATIVE) Urine Amphetamine POSITIVE (NEGATIVE) U Benzodiazepine Level NEGATIVE (NEGATIVE) Urine Cocaine NEGATIVE (NEGATIVE) Urine Marijuana (THC) NEGATIVE (NEGATIVE) Ethyl Alcohol < 10 (0-10) mg/dL Influenza Type A Ag (NEGATIVE) Influenza Type B Ag (NEGATIVE) RSV (PCR) (Negative) SARS-CoV-2 (PCR) (NEGATIVE) 02/05/22 02/05/22 02/05/22 Range/Units 16:48 17:05 18:58 WBC (4.0-10.5) x10^3/uL RBC (4.1-5.4) x10^6/uL Hgb (12.0-16.0) g/dL Hct (35-47) % MCV (78-100) fL MCH (26-32) pg MCHC (32-36) g/dL RDW (11.5-14.0) % Plt Count (150-450) x10^3/uL MPV (7.5-11.0) fL Gran % (36.0-66.0) % Immature Gran % (Auto) (0.00-0.4) % Nucleat RBC Rel Count (0.00-0.1) % Eos # (Auto) (0-0.5) x10^3/uL Immature Gran # (Auto) (0.00-0.03) x10^3u/L Absolute Lymphs (auto) (1.0-4.6) x10^3/uL Absolute Monos (auto) (0.0-1.3) x10^3/uL Absolute Nucleated RBC (0.00-0.01) x10^3u/L Lymphocytes % (24.0-44.0) % Monocytes % (0.0-12.0) % Eosinophils % (0.00-5.0) % Basophils % (0.0-0.4) % Absolute Granulocytes (1.4-6.9) x10^3/uL Basophils # (0-0.4) x10^3/uL Sodium (137-145) mmol/L Potassium (3.5-5.1) mmol/L Chloride (98-107) mmol/L Carbon Dioxide (22-30) mmol/L Anion Gap (5-15) MEQ/L BUN (7-17) mg/dL Creatinine (0.52-1.04) mg/dL Estimated GFR ML/MIN Glucose (74-106) mg/dL Lactic Acid 1.0 (0.4-2.0) Calcium (8.4-10.2) mg/dL Total Bilirubin (0.2-1.3) mg/dL AST (14-36) U/L ALT (0-35) U/L Alkaline Phosphatase (38-126) U/L Troponin I < 0.012 (0.000-0.034) ng/mL Serum Total Protein (6.3-8.2) g/dL Albumin (3.5-5.0) g/dL Thyroxine (T4) (5.53-10.96) ug/dL TSH 3rd Generation (0.47-4.68) mIU/L Serum , Qual (Negative) Urinalys Dipstick Clnc MAIN LAB Urine Color YELLOW (YELLOW) Urine Appearance SLIGHTLY CLOUDY (CLEAR) Urine pH 5.5 (5-6) Ur Specific [place] 1.020 (1.005-1.025) POC Urine Protein Conf NEGATIVE (Negative) Urine Ketones NEGATIVE (NEGATIVE) Urine Nitrite POSITIVE (NEGATIVE) Urine Bilirubin NEGATIVE (NEGATIVE) Urine Urobilinogen 0.2 (0-1) mg/dL Urine Leukocytes MODERATE (NEGATIVE) Urine WBC (Auto) >100 (0-5) /HPF Urine RBC (Auto) 11-15 (0-2) /HPF U Hyaline Cast (Auto) 0-2 (0-2) /LPF U Epithel Cells (Auto) RARE (FEW) /HPF Urine Bacteria (Auto) MODERATE (NEGATIVE) /HPF Urine RBC TRACE-INTACT (0-5) Buster/ul Unidentified Crystals 2-5 (NEGATIVE) /HPF Urine Mucus (Auto) SLIGHT (NEGATIVE) /HPF Ur Culture Indicated? YES Urine Glucose NEGATIVE (NEGATIVE) mg/dL Salicylates (2-20) mg/dL Urine Opiates Level (NEGATIVE) Ur Methadone (NEGATIVE) Acetaminophen (10-30) ug/ml Urine Barbiturates (NEGATIVE) Ur Phencyclidine (PCP) (NEGATIVE) Urine Amphetamine (NEGATIVE) U Benzodiazepine Level (NEGATIVE) Urine Cocaine (NEGATIVE) Urine Marijuana (THC) (NEGATIVE) Ethyl Alcohol (0-10) mg/dL Influenza Type A Ag (NEGATIVE) Influenza Type B Ag (NEGATIVE) RSV (PCR) (Negative) SARS-CoV-2 (PCR) (NEGATIVE) 02/05/22 02/05/22 02/06/22 Range/Units 19:15 23:25 04:35 WBC 4.9 (4.0-10.5) x10^3/uL RBC 3.83 L (4.1-5.4) x10^6/uL Hgb 11.3 L (12.0-16.0) g/dL Hct 34.9 L (35-47) % MCV 91.1 (78-100) fL MCH 29.5 (26-32) pg MCHC 32.4 (32-36) g/dL RDW 14.2 H (11.5-14.0) % Plt Count 252 (150-450) x10^3/uL MPV 11.4 H (7.5-11.0) fL Gran % 51.8 (36.0-66.0) % Immature Gran % (Auto) 0.4 (0.00-0.4) % Nucleat RBC Rel Count 0.0 (0.00-0.1) % Eos # (Auto) 0.27 (0-0.5) x10^3/uL Immature Gran # (Auto) 0.02 (0.00-0.03) x10^3u/L Absolute Lymphs (auto) 1.48 (1.0-4.6) x10^3/uL Absolute Monos (auto) 0.50 (0.0-1.3) x10^3/uL Absolute Nucleated RBC 0.00 (0.00-0.01) x10^3u/L Lymphocytes % 30.0 (24.0-44.0) % Monocytes % 10.1 (0.0-12.0) % Eosinophils % 5.5 H (0.00-5.0) % Basophils % 2.2 (0.0-0.4) % Absolute Granulocytes 2.56 (1.4-6.9) x10^3/uL Basophils # 0.11 (0-0.4) x10^3/uL Sodium (137-145) mmol/L Potassium (3.5-5.1) mmol/L Chloride (98-107) mmol/L Carbon Dioxide (22-30) mmol/L Anion Gap (5-15) MEQ/L BUN (7-17) mg/dL Creatinine (0.52-1.04) mg/dL Estimated GFR ML/MIN Glucose (74-106) mg/dL Lactic Acid (0.4-2.0) Calcium (8.4-10.2) mg/dL Total Bilirubin (0.2-1.3) mg/dL AST (14-36) U/L ALT (0-35) U/L Alkaline Phosphatase (38-126) U/L Troponin I < 0.012 (0.000-0.034) ng/mL Serum Total Protein (6.3-8.2) g/dL Albumin (3.5-5.0) g/dL Thyroxine (T4) (5.53-10.96) ug/dL TSH 3rd Generation (0.47-4.68) mIU/L Serum , Qual (Negative) Urinalys Dipstick Clnc Urine Color (YELLOW) Urine Appearance (CLEAR) Urine pH (5-6) Ur Specific [place] (1.005-1.025) POC Urine Protein Conf (Negative) Urine Ketones (NEGATIVE) Urine Nitrite (NEGATIVE) Urine Bilirubin (NEGATIVE) Urine Urobilinogen (0-1) mg/dL Urine Leukocytes (NEGATIVE) Urine WBC (Auto) (0-5) /HPF Urine RBC (Auto) (0-2) /HPF U Hyaline Cast (Auto) (0-2) /LPF U Epithel Cells (Auto) (FEW) /HPF Urine Bacteria (Auto) (NEGATIVE) /HPF Urine RBC (0-5) Buster/ul Unidentified Crystals (NEGATIVE) /HPF Urine Mucus (Auto) (NEGATIVE) /HPF Ur Culture Indicated? Urine Glucose (NEGATIVE) mg/dL Salicylates (2-20) mg/dL Urine Opiates Level (NEGATIVE) Ur Methadone (NEGATIVE) Acetaminophen (10-30) ug/ml Urine Barbiturates (NEGATIVE) Ur Phencyclidine (PCP) (NEGATIVE) Urine Amphetamine (NEGATIVE) U Benzodiazepine Level (NEGATIVE) Urine Cocaine (NEGATIVE) Urine Marijuana (THC) (NEGATIVE) Ethyl Alcohol (0-10) mg/dL Influenza Type A Ag NEGATIVE (NEGATIVE) Influenza Type B Ag NEGATIVE (NEGATIVE) RSV (PCR) NEGATIVE (Negative) SARS-CoV-2 (PCR) NEGATIVE (NEGATIVE) 02/06/22 Range/Units 04:35 WBC (4.0-10.5) x10^3/uL RBC (4.1-5.4) x10^6/uL Hgb (12.0-16.0) g/dL Hct (35-47) % MCV (78-100) fL MCH (26-32) pg MCHC (32-36) g/dL RDW (11.5-14.0) % Plt Count (150-450) x10^3/uL MPV (7.5-11.0) fL Gran % (36.0-66.0) % Immature Gran % (Auto) (0.00-0.4) % Nucleat RBC Rel Count (0.00-0.1) % Eos # (Auto) (0-0.5) x10^3/uL Immature Gran # (Auto) (0.00-0.03) x10^3u/L Absolute Lymphs (auto) (1.0-4.6) x10^3/uL Absolute Monos (auto) (0.0-1.3) x10^3/uL Absolute Nucleated RBC (0.00-0.01) x10^3u/L Lymphocytes % (24.0-44.0) % Monocytes % (0.0-12.0) % Eosinophils % (0.00-5.0) % Basophils % (0.0-0.4) % Absolute Granulocytes (1.4-6.9) x10^3/uL Basophils # (0-0.4) x10^3/uL Sodium 138 (137-145) mmol/L Potassium 3.5 (3.5-5.1) mmol/L Chloride 109 H (98-107) mmol/L Carbon Dioxide 23 (22-30) mmol/L Anion Gap 10.4 (5-15) MEQ/L BUN 27 H (7-17) mg/dL Creatinine 1.26 H (0.52-1.04) mg/dL Estimated GFR 46.4 ML/MIN Glucose 78 (74-106) mg/dL Lactic Acid (0.4-2.0) Calcium 8.3 L (8.4-10.2) mg/dL Total Bilirubin 0.60 (0.2-1.3) mg/dL AST 36 (14-36) U/L ALT 23 (0-35) U/L Alkaline Phosphatase 64 (38-126) U/L Troponin I (0.000-0.034) ng/mL Serum Total Protein 6.8 (6.3-8.2) g/dL Albumin 3.9 (3.5-5.0) g/dL Thyroxine (T4) (5.53-10.96) ug/dL TSH 3rd Generation (0.47-4.68) mIU/L Serum , Qual (Negative) Urinalys Dipstick Clnc Urine Color (YELLOW) Urine Appearance (CLEAR) Urine pH (5-6) Ur Specific [place] (1.005-1.025) POC Urine Protein Conf (Negative) Urine Ketones (NEGATIVE) Urine Nitrite (NEGATIVE) Urine Bilirubin (NEGATIVE) Urine Urobilinogen (0-1) mg/dL Urine Leukocytes (NEGATIVE) Urine WBC (Auto) (0-5) /HPF Urine RBC (Auto) (0-2) /HPF U Hyaline Cast (Auto) (0-2) /LPF U Epithel Cells (Auto) (FEW) /HPF Urine Bacteria (Auto) (NEGATIVE) /HPF Urine RBC (0-5) Buster/ul Unidentified Crystals (NEGATIVE) /HPF Urine Mucus (Auto) (NEGATIVE) /HPF Ur Culture Indicated? Urine Glucose (NEGATIVE) mg/dL Salicylates (2-20) mg/dL Urine Opiates Level (NEGATIVE) Ur Methadone (NEGATIVE) Acetaminophen (10-30) ug/ml Urine Barbiturates (NEGATIVE) Ur Phencyclidine (PCP) (NEGATIVE) Urine Amphetamine (NEGATIVE) U Benzodiazepine Level (NEGATIVE) Urine Cocaine (NEGATIVE) Urine Marijuana (THC) (NEGATIVE) Ethyl Alcohol (0-10) mg/dL Influenza Type A Ag (NEGATIVE) Influenza Type B Ag (NEGATIVE) RSV (PCR) (Negative) SARS-CoV-2 (PCR) (NEGATIVE) Micro Results-Entire Visit: Microbiology 02/05/22 16:48 Urine Culture - Preliminary Urine, Void GRAM NEGATIVE ID AND SENSITIVITY PENDING - Radiology Exams Ordered Rad Exams-Entire Visit: Radiology Procedures Category Date Time Status CERVICAL SPINE WO CONTRAST [CT] Stat Exams 02/05/22 15:12 Completed HEAD WITHOUT CONTRAST [CT] Stat Exams 02/05/22 15:11 Completed LUMBAR SPINE W/O [CT] Stat Exams 02/05/22 15:12 Completed THORACIC SPINE W/O CONTRAST [CT] Stat Exams 02/05/22 15:12 Completed - Procedures and Test Procedures and Tests throughout Hospitalization: Therapy Orders & Screens 02/05/22 22:20 Respiratory Therapy Consult ROUTINE Comment: Reason For Exam: 02/05/22 23:30 Smoking Cessation Education ONCE Comment: Diagnosis: ALtered mental status/Concussion/Meth and opiate effects/UTI/Renal insuf Smoking Status: Current every day smoker How long have you smoked: 30 Approximately how many cigarettes per day: 10 Do you dip or chew tobacco: No - Discharge Discharge Date: 02/06/22 Disposition: Home, Self-Care Condition: Stable Prescriptions: New Cephalexin Mh 500 mg [Keflex 500 mg] 500 mg PO QID #28 cap Continue Simvastatin 20Mg [Zocor 20Mg] 20 mg PO DAILY Metoprolol Tartrate 50 mg [Lopressor 50 MG] 75 mg PO DAILY Levothyroxine Sodium 100 Mcg [Synthroid 100 Mcg] 200 mcg PO QHS Mirabegron [Myrbetriq] 50 mg PO DAILY Divalproex Sodium [Divalproex Sodium ER] 500 mg PO BID Amlodipine Besylate 5 mg [Norvasc 5 mg] 5 mg PO DAILY Sertraline HCl [Zoloft] 25 mg PO DAILY Additional Instructions: FOLLOWUP WITH YOUR PCP WITHIN ONE WEEK. PLEASE TAKE A COPY OF YOUR DISCHARGE PAPERWORK WITH YOU TO YOUR APPOINTMENT. Follow up with: CATRACHO BURTON MD [NON-STAFF PHY W/O PRIVILEGES] - 02/13/22 10:00 am (NEW PATIENT, LAST VISIT WAS IN 2018. )
[2022-02-06 16:21] VITALS: BP 144/80; PULSE 68
[2022-02-06 19:01] VITALS: O2SAT 94
[2022-02-06] MEDS ORDERED: NON-FORMULARY ITEM (Divalproex Sodium [Divalproex Sodium Er] 500 MG Tab.Er.24h) PO SCH (22:00)
[2022-02-06] MEDS ORDERED: SYNTHROID 100 MCG PO SCH (22:00)
[2022-02-06] MEDS ORDERED: ROCEPHIN 1 Gm-D5w 50 ml Bag** 1 G/50 ML IVPB IV SCH (22:00)
[2022-02-07] MEDS ORDERED: Lopressor 50 MG PO SCH (10:00)
[2022-02-07] MEDS ORDERED: NON-FORMULARY ITEM (Sertraline Hcl [Zoloft] 25 MG Tablet) PO SCH (10:00)
[2022-02-07] MEDS ORDERED: NON-FORMULARY ITEM (Mirabegron [Myrbetriq] 50 MG Tab.Er.24h) PO SCH (10:00)
== END 2022-02-06 21:00 | disposition home or self-care (01) ==
LOC: ED 14:48 → MED SURG 22:08
PROVIDERS: ADMIT General Practice; ATTEND General Practice
DX: N10 Acute pyelonephritis (principal); N39.0 Urinary tract infection, site not specified; F15.10 Other stimulant abuse, uncomplicated; F11.10 Opioid abuse, uncomplicated; R41.82 Altered mental status, unspecified; I10 Essential (primary) hypertension; S06.0X1A Concussion with loss of consciousness of 30 minutes or less, initial encounter; W18.30XA Fall on same level, unspecified, initial encounter; Z79.899 Other long term (current) drug therapy; Z20.828 Contact with and (suspected) exposure to other viral communicable diseases; Z72.0 Tobacco use
CPT/HCPCS: 0241U; 36415; 70450; 72125; 72128; 72131; 80053; 80307; 81015; 83605; 84436; 84443; 84484; 84703; 85025; 87086; 93005; 94762; 96365; 96374; 99285; G0480; 87077; 87186; 93268; J0696; J2060; A9270-GY; G0378

== ENCOUNTER 2022-10-22 02:04 | Emergency (ER) | payer MEDICARE ==
[2022-10-22 02:23] VITALS: BP 191/112
[2022-10-22] MEDS ORDERED: Kenalog-40 IM ONE (02:39)
--- NOTE | 2022-10-22 02:39 | ERPHSYRPT ---
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 pt bilat hands are red, scratches are visible. skin is intact. 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 Timing/Duration: today Severity: moderate Modifying Factors: Improves With: nothing Associated Symptoms: denies symptoms Allergies/Adverse Reactions: No Known Drug Allergies Allergy (Verified 10/22/22 02:23) Home Medications: Levothyroxine Sodium 100 Mcg [Synthroid 100 Mcg] 200 mcg PO QHS 11/25/12 [History] Metoprolol Tartrate 50 mg [Lopressor 50 MG] 75 mg PO DAILY 11/25/12 [History] Simvastatin 20Mg [Zocor 20Mg] 20 mg PO DAILY 11/25/12 [History] Amlodipine Besylate 5 mg [Norvasc 5 mg] 5 mg PO DAILY 02/05/22 [History] Divalproex Sodium [Divalproex Sodium ER] 500 mg PO BID 02/05/22 [History] Mirabegron [Myrbetriq] 50 mg PO DAILY 02/05/22 [History] Sertraline HCl [Zoloft] 25 mg PO DAILY 02/05/22 [History] Hx Tetanus, Diphtheria Vaccination/Date Given: Yes Hx Influenza Vaccination/Date Given: No Hx Pneumococcal Vaccination/Date Given: No Immunizations Up to Date: Yes Travel Risk - International Travel Have you traveled outside of the country in past 3 weeks: No - Coronavirus Screening Are you exhibiting any of the following symptoms?: No Close contact with a COVID-19 positive Pt in past 14-21 Days: No - Vaccine Status Have you recieved a Covid-19 vaccination: Yes 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: [email or web address] - Review of Systems Constitutional: No Symptoms Eyes: No Symptoms Ears, Nose, & Throat: No Symptoms Respiratory: No Symptoms Cardiac: No Symptoms Abdominal/Gastrointestinal: No Symptoms Genitourinary Symptoms: No Symptoms Musculoskeletal: No Symptoms Skin: Pruritis Neurological: No Symptoms - Past Medical History Pertinent Past Medical History: Yes Neurological History: No Pertinent History ENT History: No Pertinent History Cardiac History: High Cholesterol, Hypertension Respiratory History: No Pertinent History Endocrine Medical History: Hypothyroidism Musculoskeletal History: Arthritis GI Medical History: GERD, Hepatitis History: Renal Disease Psycho-Social History: Bipolar, Depression Female Reproductive Disorders: No Pertinent History Other Medical History: CHRONIC ALCOHOLIC. SUBSTANCE ABUSE USER-METH. pt has hep c. pt very poor historian at this time. most of history obtained from previous documentation - Past Surgical History Past Surgical History: Yes Neuro Surgical History: No Pertinent History Cardiac: No Pertinent History Respiratory: No Pertinent History Gastrointestinal: No Pertinent History Genitourinary: Kidney Surgery Musculoskeletal: Orthopedic Surgery Female Surgical History: Hysterectomy, Tubal Ligation Other Surgical History: reimplantation of ureter - Social History Smoking Status: Current every day smoker How long have you smoked: 30 Exposure to second hand smoke: No Drug Use: none Patient Lives Alone: No Significant Family History: no pertinent family hx - Nursing Vital Signs Nursing Vital Signs: Initial Vital Signs Temperature 98 F 10/22/22 02:16 Pulse Rate 71 10/22/22 02:16 Respiratory Rate 18 10/22/22 02:16 Blood Pressure 191/112 10/22/22 02:16 O2 Sat by Pulse Oximetry 96 10/22/22 02:16 Pain Scale Pain Intensity 0 - Physical Exam General Appearance: no apparent distress Eye Exam: PERRL/EOMI Ears, Nose, Throat Exam: normal ENT inspection Neck Exam: normal inspection Respiratory Exam: normal breath sounds Cardiovascular Exam: regular rate/rhythm Gastrointestinal/Abdomen Exam: soft Back Exam: normal inspection Extremity Exam: normal inspection Neurologic Exam: alert, oriented x 3 SpO2: 96 - Course Nursing assessment & vital signs reviewed: Yes Ordered Tests: Medication Summary Discontinued Medications Generic Name Dose Route Start Last Admin Trade Name Freq PRN Reason Stop Dose Admin Triamcinolone Acetonide 40 mg 10/22/22 02:39 Triamcinolone Acetonide 40 Mg/Ml Ml IM 10/22/22 02:40 1XONLY ONE - Progress Progress: improved Counseled pt/family regarding: diagnosis, need for follow-up - Departure Departure Disposition: Home Clinical Impression: Contact dermatitis Qualifiers: Contact dermatitis type: irritant Contact dermatitis trigger: other trigger Qualified Code(s): L24.89 - Irritant contact dermatitis due to other agents; L24.8 - Irritant contact dermatitis due to other agents Condition: Stable Critical Care Time: No Referrals: AL MCNAIR [Primary Care Provider] - Follow up/PCP as directed Prescriptions: Triamcinolone 0.1% Cream [Kenalog 0.1% Cream 15 gm] 15 gm TP QID #30 cm
[2022-10-22] MEDS ORDERED: Kenalog-40 ONE (02:48)
[2022-10-22 03:12] VITALS: PULSE 88; O2SAT 98
== END 2022-10-22 03:11 | disposition home or self-care (01) ==
LOC: ED 02:04
DX: L24.89 Irritant contact dermatitis due to other agents (principal); E78.5 Hyperlipidemia, unspecified; I10 Essential (primary) hypertension; Z79.899 Other long term (current) drug therapy; Z72.0 Tobacco use
CPT/HCPCS: 96372; 99282; J3301

== ENCOUNTER 2022-11-04 06:31 | Emergency (ER) | payer MEDICARE ==
[2022-11-04] MEDS ORDERED: Sodium Chloride 0.9% 1000 ML 1,000 ML IV STA ×2 (07:01→08:34)
[2022-11-04 07:03] VITALS: PULSE 75
--- NOTE | 2022-11-04 07:10 | ERPHSYRPT ---
- History of Present Illness Time Seen by Provider: 11/04/22 06:50 Source: patient Exam Limitations: no limitations Patient Subjective Stated Complaint: pt states she has been having cramps in her legs for the last 2 days. today had a cramp in her rt upper leg. Triage Nursing Assessment: pt alert and oriented, answers questions approp. pt ambulates into room with steady gait noted. respirations nonlabored. skin warm and dry. pedal pulses strong and wnl bilat. pt denies numbness and tingling. cap refill wnl. Physician History: Patient is a 56-year-old white female who presents with complaint of leg pain which is crampy in nature she had leg cramps yesterday this morning she awoke with cramps and pains in her left anterior thigh. She says she has inflammation in the left anterior thigh. She denies any unusual activity or any injury. She does report she recently had a right knee MRI and a brain MRI secondary to a concussion. Timing/Duration: yesterday Severity: moderate Modifying Factors: Improves With: movement Allergies/Adverse Reactions: No Known Drug Allergies Allergy (Verified 11/04/22 07:03) Home Medications: Levothyroxine Sodium 100 Mcg [Synthroid 100 Mcg] 200 mcg PO QHS 11/25/12 [History] Metoprolol Tartrate 50 mg [Lopressor 50 MG] 75 mg PO DAILY 11/25/12 [History] Simvastatin 20Mg [Zocor 20Mg] 20 mg PO DAILY 11/25/12 [History] Amlodipine Besylate 5 mg [Norvasc 5 mg] 5 mg PO DAILY 02/05/22 [History] Divalproex Sodium [Divalproex Sodium ER] 500 mg PO BID 02/05/22 [History] Mirabegron [Myrbetriq] 50 mg PO DAILY 02/05/22 [History] Sertraline HCl [Zoloft] 25 mg PO DAILY 02/05/22 [History] Hx Tetanus, Diphtheria Vaccination/Date Given: Yes Hx Influenza Vaccination/Date Given: No Hx Pneumococcal Vaccination/Date Given: No Immunizations Up to Date: Yes Travel Risk - International Travel Have you traveled outside of the country in past 3 weeks: No - Coronavirus Screening Are you exhibiting any of the following symptoms?: No Close contact with a COVID-19 positive Pt in past 14-21 Days: No - Vaccine Status Have you recieved a Covid-19 vaccination: Yes 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: [employer] - Review of Systems Constitutional: No Fever, No Chills Eyes: No Symptoms Ears, Nose, & Throat: No Symptoms Respiratory: No Cough, No Dyspnea Cardiac: No Chest Pain, No Edema, No Syncope Abdominal/Gastrointestinal: No Abdominal Pain, No Nausea, No Vomiting, No Diarrhea Genitourinary Symptoms: No Dysuria Musculoskeletal: Myalgias, No Back Pain, No Neck Pain Skin: No Rash Neurological: No Dizziness, No Focal Weakness, No Sensory Changes Psychological: No Symptoms Endocrine: No Symptoms All Other Systems: Reviewed and Negative - Past Medical History Pertinent Past Medical History: Yes Neurological History: Other ENT History: No Pertinent History Cardiac History: High Cholesterol, Hypertension Respiratory History: No Pertinent History Endocrine Medical History: Hypothyroidism Musculoskeletal History: Arthritis GI Medical History: GERD, Hepatitis History: Renal Disease Psycho-Social History: Bipolar, Depression Female Reproductive Disorders: No Pertinent History Other Medical History: CHRONIC ALCOHOLIC. 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 hep c- states she had tests come back negative recently. pt states 2 recent concussions - Past Surgical History Past Surgical History: Yes Neuro Surgical History: No Pertinent History Cardiac: No Pertinent History Respiratory: No Pertinent History Gastrointestinal: No Pertinent History Genitourinary: Kidney Surgery Musculoskeletal: Orthopedic Surgery Female Surgical History: Hysterectomy, Tubal Ligation Other Surgical History: reimplantation of ureter, plate in face - Social History Smoking Status: Current every day smoker How long have you smoked: 40+yrs Exposure to second hand smoke: No Drug Use: none Patient Lives Alone: No Significant Family History: no pertinent family hx - Nursing Vital Signs Nursing Vital Signs: Initial Vital Signs Temperature 97.1 F 11/04/22 06:42 Pulse Rate 75 11/04/22 06:42 Respiratory Rate 16 11/04/22 06:42 Blood Pressure 157/97 11/04/22 06:42 O2 Sat by Pulse Oximetry 95 11/04/22 06:42 Pain Scale Pain Intensity 3 - Physical Exam General Appearance: mild distress Eye Exam: PERRL/EOMI, eyes nml inspection Ears, Nose, Throat Exam: normal ENT inspection, TMs normal, pharynx normal, moist mucous membranes Neck Exam: normal inspection, non-tender, supple, full range of motion Respiratory Exam: normal breath sounds, lungs clear, No respiratory distress Cardiovascular Exam: regular rate/rhythm, normal heart sounds, normal peripheral pulses Gastrointestinal/Abdomen Exam: soft, normal bowel sounds, No tenderness, No mass Back Exam: normal inspection, normal range of motion, No CVA tenderness, No vertebral tenderness Extremity Exam: normal inspection, normal range of motion, pelvis stable Neurologic Exam: alert, oriented x 3, cooperative, normal mood/affect, nml cerebellar function, nml station & gait, sensation nml, No motor deficits Skin Exam: normal color, warm, dry, No rash Lymphatic Exam: No adenopathy SpO2: 95 - Course Nursing assessment & vital signs reviewed: Yes Ordered Tests: Active Orders 24 hr Category Date Time Status IV Insertion STAT Care 11/04/22 07:01 Active CBC W DIFF Stat Lab 11/04/22 06:46 Completed CK-Creatinine Phosphokinase Stat Lab 11/04/22 07:20 Completed CMP Stat Lab 11/04/22 07:20 Completed CULTURE,URINE Stat Lab 11/04/22 06:56 Received Lactic Acid Stat Lab 11/04/22 08:00 Completed PROTIME WITH INR Stat Lab 11/04/22 07:20 Completed SED RATE [Erythrocyte Sedimentation Rate] Stat Lab 11/04/22 07:20 Completed UA W/RFX UR CULTURE Stat Lab 11/04/22 06:56 Completed Urine Triage Profile Stat Lab 11/04/22 06:56 Completed Medication Summary Generic Name Dose Route Start Last Admin Trade Name Freq PRN Reason Stop Dose Admin Sodium Chloride 1,000 mls @ 999 mls/hr 11/04/22 08:34 Sodium Chloride 0.9% 1000 Ml IV 11/04/22 09:34 .Q1H1M STA Discontinued Medications Generic Name Dose Route Start Last Admin Trade Name Freq PRN Reason Stop Dose Admin Sodium Chloride 1,000 mls @ 999 mls/hr 11/04/22 07:01 11/04/22 07:44 Sodium Chloride 0.9% 1000 Ml IV 11/04/22 08:01 999 mls/hr .Q1H1M STA Administration Sodium Chloride Confirm 11/04/22 07:43 Sodium Chloride 0.9% 1000 Ml Administered 11/04/22 07:44 Dose 1,000 mls @ ud .ROUTE [facility] Lab/Rad Data: Laboratory Result Diagrams 11/04/22 06:46 11/04/22 07:20 Laboratory Results 11/04/22 11/04/22 11/04/22 Range/Units 08:00 07:20 07:20 WBC (4.0-10.5) x10^3/uL RBC (4.1-5.4) x10^6/uL Hgb (12.0-16.0) g/dL Hct (35-47) % MCV (78-100) fL MCH (26-32) pg MCHC (32-36) g/dL RDW (11.5-14.0) % Plt Count (150-450) x10^3/uL MPV (7.5-11.0) fL Gran % (36.0-66.0) % Immature Gran % (Auto) (0.00-0.4) % Nucleat RBC Rel Count (0.00-0.1) % Eos # (Auto) (0-0.5) x10^3/uL Immature Gran # (Auto) (0.00-0.03) x10^3u/L Absolute Lymphs (auto) (1.0-4.6) x10^3/uL Absolute Monos (auto) (0.0-1.3) x10^3/uL Absolute Nucleated RBC (0.00-0.01) x10^3u/L Lymphocytes % (24.0-44.0) % Monocytes % (0.0-12.0) % Eosinophils % (0.00-5.0) % Basophils % (0.0-0.4) % Absolute Granulocytes (1.4-6.9) x10^3/uL Basophils # (0-0.4) x10^3/uL ESR 13 (0-20) mm/hr PT 9.5 (9.4-12.5) SECONDS INR 0.86 (0.8-3.0) Sodium (137-145) mmol/L Potassium (3.5-5.1) mmol/L Chloride (98-107) mmol/L Carbon Dioxide (22-30) mmol/L Anion Gap (5-15) MEQ/L BUN (7-17) mg/dL Creatinine (0.52-1.04) mg/dL Estimated GFR ML/MIN Glucose (74-106) mg/dL Lactic Acid 1.3 (0.4-2.0) Calcium (8.4-10.2) mg/dL Total Bilirubin (0.2-1.3) mg/dL AST (14-36) U/L ALT (0-35) U/L Alkaline Phosphatase (38-126) U/L Creatine Kinase (30-135) U/L Serum Total Protein (6.3-8.2) g/dL Albumin (3.5-5.0) g/dL Urine Color (Yellow) Urine Appearance (Clear) Urine pH (4.6-8.0) Ur Specific [place] (1.005-1.030) Urine Protein (Negative) Urine Glucose (UA) (Negative) mg/dL Urine Ketones (Negative) Urine Blood (Negative) Urine Nitrite (Negative) Urine Bilirubin (Negative) Urine Urobilinogen (0.2) mg/dL Ur Leukocyte Esterase (Negative) U Hyaline Cast (Auto) (0-2) /LPF Urine Microscopic RBC (0-5) /HPF Urine Microscopic WBC (0-5) /HPF Ur Epithelial Cells (None Seen) /HPF Urine Bacteria (None Seen) /HPF Urine Culture Reflexed (NO) Urine Opiates Level (NEGATIVE) Ur Methadone (NEGATIVE) Urine Barbiturates (NEGATIVE) Ur Phencyclidine (PCP) (NEGATIVE) Urine Amphetamine (NEGATIVE) U Benzodiazepine Level (NEGATIVE) Urine Cocaine (NEGATIVE) Urine Marijuana (THC) (NEGATIVE) 11/04/22 11/04/22 11/04/22 Range/Units 07:20 06:56 06:56 WBC (4.0-10.5) x10^3/uL RBC (4.1-5.4) x10^6/uL Hgb (12.0-16.0) g/dL Hct (35-47) % MCV (78-100) fL MCH (26-32) pg MCHC (32-36) g/dL RDW (11.5-14.0) % Plt Count (150-450) x10^3/uL MPV (7.5-11.0) fL Gran % (36.0-66.0) % Immature Gran % (Auto) (0.00-0.4) % Nucleat RBC Rel Count (0.00-0.1) % Eos # (Auto) (0-0.5) x10^3/uL Immature Gran # (Auto) (0.00-0.03) x10^3u/L Absolute Lymphs (auto) (1.0-4.6) x10^3/uL Absolute Monos (auto) (0.0-1.3) x10^3/uL Absolute Nucleated RBC (0.00-0.01) x10^3u/L Lymphocytes % (24.0-44.0) % Monocytes % (0.0-12.0) % Eosinophils % (0.00-5.0) % Basophils % (0.0-0.4) % Absolute Granulocytes (1.4-6.9) x10^3/uL Basophils # (0-0.4) x10^3/uL ESR (0-20) mm/hr PT (9.4-12.5) SECONDS INR (0.8-3.0) Sodium 142 (137-145) mmol/L Potassium 4.3 (3.5-5.1) mmol/L Chloride 108 H (98-107) mmol/L Carbon Dioxide 24 (22-30) mmol/L Anion Gap 13.6 (5-15) MEQ/L BUN 29 H (7-17) mg/dL Creatinine 1.00 (0.52-1.04) mg/dL Estimated GFR > 60.0 ML/MIN Glucose 92 (74-106) mg/dL Lactic Acid (0.4-2.0) Calcium 8.9 (8.4-10.2) mg/dL Total Bilirubin 0.40 (0.2-1.3) mg/dL AST 48 H (14-36) U/L ALT 26 (0-35) U/L Alkaline Phosphatase 94 (38-126) U/L Creatine Kinase 625 H (30-135) U/L Serum Total Protein 8.4 H (6.3-8.2) g/dL Albumin 4.6 (3.5-5.0) g/dL Urine Color Yellow (Yellow) Urine Appearance Clear (Clear) Urine pH 6.5 (4.6-8.0) Ur Specific [place] 1.010 (1.005-1.030) Urine Protein Negative (Negative) Urine Glucose (UA) Negative (Negative) mg/dL Urine Ketones Negative (Negative) Urine Blood Negative (Negative) Urine Nitrite Negative (Negative) Urine Bilirubin Negative (Negative) Urine Urobilinogen 0.2 (0.2) mg/dL Ur Leukocyte Esterase Large A (Negative) U Hyaline Cast (Auto) NONE SEEN (0-2) /LPF Urine Microscopic RBC 0-2 (0-5) /HPF Urine Microscopic WBC >100 A (0-5) /HPF Ur Epithelial Cells None Seen (None Seen) /HPF Urine Bacteria None Seen (None Seen) /HPF Urine Culture Reflexed YES (NO) Urine Opiates Level POSITIVE (NEGATIVE) Ur Methadone NEGATIVE (NEGATIVE) Urine Barbiturates NEGATIVE (NEGATIVE) Ur Phencyclidine (PCP) NEGATIVE (NEGATIVE) Urine Amphetamine NEGATIVE (NEGATIVE) U Benzodiazepine Level NEGATIVE (NEGATIVE) Urine Cocaine NEGATIVE (NEGATIVE) Urine Marijuana (THC) NEGATIVE (NEGATIVE) 11/04/22 Range/Units 06:46 WBC 7.8 (4.0-10.5) x10^3/uL RBC 4.23 (4.1-5.4) x10^6/uL Hgb 12.5 (12.0-16.0) g/dL Hct 39.7 (35-47) % MCV 93.9 (78-100) fL MCH 29.6 (26-32) pg MCHC 31.5 L (32-36) g/dL RDW 12.7 (11.5-14.0) % Plt Count 218 (150-450) x10^3/uL MPV 10.6 (7.5-11.0) fL Gran % 60.6 (36.0-66.0) % Immature Gran % (Auto) 0.3 (0.00-0.4) % Nucleat RBC Rel Count 0.0 (0.00-0.1) % Eos # (Auto) 0.35 (0-0.5) x10^3/uL Immature Gran # (Auto) 0.02 (0.00-0.03) x10^3u/L Absolute Lymphs (auto) 2.08 (1.0-4.6) x10^3/uL Absolute Monos (auto) 0.47 (0.0-1.3) x10^3/uL Absolute Nucleated RBC 0.00 (0.00-0.01) x10^3u/L Lymphocytes % 26.8 (24.0-44.0) % Monocytes % 6.1 (0.0-12.0) % Eosinophils % 4.5 (0.00-5.0) % Basophils % 1.7 (0.0-0.4) % Absolute Granulocytes 4.70 (1.4-6.9) x10^3/uL Basophils # 0.13 (0-0.4) x10^3/uL ESR (0-20) mm/hr PT (9.4-12.5) SECONDS INR (0.8-3.0) Sodium (137-145) mmol/L Potassium (3.5-5.1) mmol/L Chloride (98-107) mmol/L Carbon Dioxide (22-30) mmol/L Anion Gap (5-15) MEQ/L BUN (7-17) mg/dL Creatinine (0.52-1.04) mg/dL Estimated GFR ML/MIN Glucose (74-106) mg/dL Lactic Acid (0.4-2.0) Calcium (8.4-10.2) mg/dL Total Bilirubin (0.2-1.3) mg/dL AST (14-36) U/L ALT (0-35) U/L Alkaline Phosphatase (38-126) U/L Creatine Kinase (30-135) U/L Serum Total Protein (6.3-8.2) g/dL Albumin (3.5-5.0) g/dL Urine Color (Yellow) Urine Appearance (Clear) Urine pH (4.6-8.0) Ur Specific [place] (1.005-1.030) Urine Protein (Negative) Urine Glucose (UA) (Negative) mg/dL Urine Ketones (Negative) Urine Blood (Negative) Urine Nitrite (Negative) Urine Bilirubin (Negative) Urine Urobilinogen (0.2) mg/dL Ur Leukocyte Esterase (Negative) U Hyaline Cast (Auto) (0-2) /LPF Urine Microscopic RBC (0-5) /HPF Urine Microscopic WBC (0-5) /HPF Ur Epithelial Cells (None Seen) /HPF Urine Bacteria (None Seen) /HPF Urine Culture Reflexed (NO) Urine Opiates Level (NEGATIVE) Ur Methadone (NEGATIVE) Urine Barbiturates (NEGATIVE) Ur Phencyclidine (PCP) (NEGATIVE) Urine Amphetamine (NEGATIVE) U Benzodiazepine Level (NEGATIVE) Urine Cocaine (NEGATIVE) Urine Marijuana (THC) (NEGATIVE) - Progress Progress Note: 11/04/22 08:51 Patient was found to have an elevated CPK of just over 600. She was questioned about possible drug use and refused to admit to that became angry and left AMAShe would not sign any papers and she received no treatment for the urinary tract infection which we informed her of. - Departure Departure Disposition: AMA Clinical Impression: UTI (urinary tract infection), Elevated CPK Condition: Fair Critical Care Time: No Referrals: AL MCNAIR [Primary Care Provider] - Follow up/PCP as directed
[2022-11-04 07:15] LABS: Appearance Clear (Clear); Bacteria None Seen /HPF (None Seen); Bilirubin Negative (Negative); Blood Negative (Negative); Epithelial Cells None Seen /HPF (None Seen); Glucose, Urine Negative (Negative); Hyaline Casts NONE SEEN /LPF (0-2); Ketones Negative (Negative); Leukocyte Esterase Large (Negative); Nitrite Negative (Negative); Ph 6.5 (4.6-8.0); Protein,Urine Dip Negative (Negative); RBC 0-2 /HPF (0-5); Urobilinogen 0.2 mg/dL (0.2); WBC >100 /HPF (0-5)
[2022-11-04 07:19] LABS: ADD URINE CULTURE? YES (NO)
[2022-11-04 07:32] LABS: BASOPHIL % 1.7 % (0.0-0.4); Basophil (Absolute #) 0.13 x10^3/uL (0-0.4); Eosinophil % 4.5 % (0.00-5.0); Eosinophil (Absolute #) 0.35 x10^3/uL (0-0.5); Hematocrit 39.7 % (35-47); Hemoglobin 12.5 g/dL (12.0-16.0); IMMATURE GRAN # 0.02 x10^3u/L (0.00-0.03); IMMATURE GRAN % 0.3 % (0.00-0.4); Lymphocyte (Absolute #) 2.08 x10^3/uL (1.0-4.6); Lymphocytes % 26.8 % (24.0-44.0); Mean Cell Volume 93.9 fL (78-100); Mean Corpuscular Hemoglobin 29.6 pg (26-32); Mean Corpuscular Hgb Concent. 31.5 g/dL (32-36); Mean Platelet Volume 10.6 fL (7.5-11.0); Monocyte (Absolute #) 0.47 x10^3/uL (0.0-1.3); Monocytes % 6.1 % (0.0-12.0); Neutrophil % 60.6 % (36.0-66.0); Platelet Count 218 x10^3/uL (150-450); Red Blood Count 4.23 x10^6/uL (4.1-5.4); Red Cell Distribution Width 12.7 % (11.5-14.0); White Blood Count 7.8 x10^3/uL (4.0-10.5)
[2022-11-04] MEDS ORDERED: Sodium Chloride 0.9% 1000 ML 1,000 ML ONE (07:43)
[2022-11-04 07:44] LABS: INR 0.86 (0.8-3.0); PROTIME 9.5 SECONDS (9.4-12.5)
[2022-11-04 07:45] LABS: ALBUMIN 4.6 g/dL (3.5-5.0); ALKALINE PHOSPHATASE 94 U/L (38-126); ANION GAP 13.6 MEQ/L (5-15); BLOOD UREA NITROGEN 29 mg/dL (7-17); CHLORIDE 108 mmol/L (98-107); CK-Creatinine Phosphokinase 625 U/L (30-135); Calcium 8.9 mg/dL (8.4-10.2); Carbon Dioxide 24 mmol/L (22-30); EST GLOMERULAR FILTRATION RATE > 60.0 ML/MIN; Glucose 92 mg/dL (74-106); Potassium 4.3 mmol/L (3.5-5.1); SGOT/AST 48 U/L (14-36); SGPT/ALT 26 U/L (0-35); SODIUM 142 mmol/L (137-145); Total Protein 8.4 g/dL (6.3-8.2)
[2022-11-04 08:06] LABS: Amphetamine,Urine NEGATIVE (NEGATIVE); Barbiturate,Urine NEGATIVE (NEGATIVE); Benzodiazepine,Urine NEGATIVE (NEGATIVE); Cocaine,Urine NEGATIVE (NEGATIVE); Methadone,Urine NEGATIVE (NEGATIVE); Opiate,Urine POSITIVE (NEGATIVE); PCP,Urine NEGATIVE (NEGATIVE); THC,Urine NEGATIVE (NEGATIVE)
[2022-11-04 08:11] VITALS: BP 116/67
[2022-11-04 08:54] VITALS: O2SAT 95
[2022-11-04] MEDS ORDERED: Hydromorphone 1 mg/ml Injection IV ONE (08:54)
== END 2022-11-04 08:49 | disposition left against medical advice (07) ==
LOC: ED 06:31
DX: N39.0 Urinary tract infection, site not specified (principal); R74.8 Abnormal levels of other serum enzymes; R25.2 Cramp and spasm; M79.652 Pain in left thigh; E78.5 Hyperlipidemia, unspecified; I10 Essential (primary) hypertension; Z79.899 Other long term (current) drug therapy; Z72.0 Tobacco use
CPT/HCPCS: 36415; 80053; 80307; 81001; 82550; 83605; 85025; 85610; 85652; 87077; 87086; 87186; 99283